=== PATIENT | male | born 1935 | race Caucasian/White ===

== ENCOUNTER 2021-11-05 20:35 | Inpatient (IN) ==
[2021-11-05 22:03] LABS: Basophils # (auto) 0.05 K/uL (0-0.2); Basophils % (auto) 0.6 %; Eosinophils # (auto) 0.01 K/uL (0-0.5); Eosinophils % (auto) 0.1 %; Hematocrit (blood only) 45.7 % (42-52); Hemoglobin 15.7 g/dL (14.0-18.0); Immature Granulocytes % (auto) 1.2 %; Lymphocytes # (auto) 1.12 K/uL (1.2-3.4); Lymphocytes % (auto) 13.2 %; Mean Corpuscular Hemoglobin 30.8 pg (25-34); Mean Corpuscular Hgb Conc 34.4 g/dL (32-36); Mean Corpuscular Volume 89.6 fL (80-100); Mean Platelet Volume 11.5 fL (7.4-10.4); Monocytes # (auto) 2.16 K/uL (0.11-0.59); Monocytes % (auto) 25.5 %; Neutrophils # (auto) 5.03 K/uL (1.4-6.5); Neutrophils % (auto) 59.4 %; Platelet Count 268 K/uL (130-400); RDW Coefficient of Variation 12.8 % (11.5-14.5); RDW Standard Deviation 42.1 fL (36.4-46.3); White Blood Count 8.47 K/uL (4.8-10.8)
--- NOTE | 2021-11-05 22:14 | Emergency Department Note ---
History of Present Illness General Chief complaint: Hypotension Time Seen by Provider: 11/05/21 21:27 History of Present Illness This 86-year-old on aspirin presents to the ER complaining of generalized illness after receiving the shingles vaccine on Thursday who had a near syncopal episode tonight and hit his head Location: Generalized Quality: Weak Severity: Moderate Duration: Past few days Timing: Started after his shingle vaccine Context: Patient was concerned and came in Modifying factors: better with IV fluids; worse with activity Patient states has had a fair amount of diarrhea since that shingles vaccine. He feels weak. His blood pressure was low and EMS gave him a liter which improved this. Patient states he got lightheaded and nearly passed out striking his head. Patient states he feels better after the IV fluids. Patient denies chest pain, dyspnea, localized abdominal pain, neck stiffness, current headache. He states he had a family doctor's appointment on Thursday in which he received his shingles vaccine and had a Holter monitor placed for feeling lightheaded. Home Medications Medication Instructions Recorded Confirmed Type Turmeric/Curcumin 500 mg PO DAILY 11/05/21 11/05/21 History aspirin 325 mg tablet 325 mg PO DAILY 11/05/21 11/05/21 History cholecalciferol (vitamin D3) 25 25 mcg PO Q OTHER DAY 11/05/21 11/05/21 History mcg (1,000 unit) capsule (Vitamin D3) cyanocobalamin (vitamin B-12) 1,000 mcg PO Q OTHER DAY 11/05/21 11/05/21 History 1,000 mcg tablet (Vitamin B-12) gabapentin 100 mg capsule 100 mg PO TID 11/05/21 11/05/21 History garlic 500 mg capsule 500 mg PO DAILY 11/05/21 11/05/21 History losartan 50 mg tablet 50 mg PO DAILY 11/05/21 11/05/21 History simvastatin 40 mg tablet 40 mg PO HS 11/05/21 11/05/21 History triamcinolone acetonide 0.1 % 1 applic TOPICAL HS PRN 11/05/21 11/05/21 History topical ointment vit A-vit [id number] lozenges 1 keisha PO DIRECTED PRN 11/05/21 11/05/21 History (Zinc (with A and C) Lozenges) Allergies Allergy/AdvReac Type Severity Reaction Status Date / Time GAB Inhibitors AdvReac Intermediate Cough Verified 11/05/21 22:29 Past Med/Surg History Medical History High blood pressure Surgical History History of orthopedic surgery Social History Smoking Status: Never smoker Tobacco Type: Cigarettes Hx Alcohol Use: Yes Hx Substance Use: No Preferred Language: Irish Communication Ability: Effective 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 Beliefs That Will Affect Care: None Current Living Situation: Spouse Other Information That Helps Us Care for You: No Feels Safe at Home: Yes Safety Concerns: Feels Safe At This Time Assistive Devices: None Review of Systems A total of 10 systems reviewed and were otherwise negative Physical Exam Vital Signs Vital Signs - 24 hr 11/05/21 20:40 11/05/21 20:44 11/05/21 20:58 Temperature 36.7 C Temperature Source Oral Pulse Rate 99 H 108 H Pulse Rate [Apical] Pulse Rate from SpO2 Sensor Pulse Rhythm [Apical] Pulse Strength [Apical] Respiratory Rate 26 H 20 Respiratory Effort / Characteristics Non-Labored Respiratory Depth Normal Respiratory Pattern Blood Pressure 110/55 L 110/55 L Blood Pressure [Right Arm] Blood Pressure Mean 73 73 Blood Pressure Mean [Right Arm] Blood Pressure Position Sitting Blood Pressure Position [Right Arm] Pulse Oximetry 93 98 98 Oxygen Delivery Method Room Air Room Air Room Air Oxygen Flow Rate 0 Sepsis Recent Fever Within 48 Hours No Sepsis New/Unexplained Change in Mental Status N/A Sepsis Action Taken by Nursing No Action Required 11/05/21 21:00 11/05/21 21:30 11/05/21 22:01 Temperature Temperature Source Pulse Rate 124 H 115 H Pulse Rate [Apical] Pulse Rate from SpO2 Sensor 87 73 Pulse Rhythm [Apical] Pulse Strength [Apical] Respiratory Rate 29 H 29 H Respiratory Effort / Characteristics Non-Labored Respiratory Depth Respiratory Pattern Blood Pressure Blood Pressure [Right Arm] Blood Pressure Mean Blood Pressure Mean [Right Arm] Blood Pressure Position Blood Pressure Position [Right Arm] Pulse Oximetry 94 95 95 Oxygen Delivery Method Room Air Room Air Room Air Oxygen Flow Rate Sepsis Recent Fever Within 48 Hours Sepsis New/Unexplained Change in Mental Status Sepsis Action Taken by Nursing 03/08/22 22:30 11/05/21 23:00 11/05/21 23:28 Temperature Temperature Source Pulse Rate Pulse Rate [Apical] 102 H Pulse Rate from SpO2 Sensor Pulse Rhythm [Apical] Irregular Pulse Strength [Apical] Respiratory Rate 24 24 Respiratory Effort / Characteristics Non-Labored Labored Non-Labored Respiratory Depth Normal Respiratory Pattern Regular Blood Pressure Blood Pressure [Right Arm] 133/56 L Blood Pressure Mean Blood Pressure Mean [Right Arm] 81 Blood Pressure Position Blood Pressure Position [Right Arm] Lying Pulse Oximetry 93 94 94 Oxygen Delivery Method Room Air Room Air Room Air Oxygen Flow Rate Sepsis Recent Fever Within 48 Hours Sepsis New/Unexplained Change in Mental Status Sepsis Action Taken by Nursing 11/05/21 23:56 11/06/21 00:00 11/06/21 00:04 Temperature Temperature Source Pulse Rate Pulse Rate [Apical] 103 H Pulse Rate from SpO2 Sensor Pulse Rhythm [Apical] Irregular Pulse Strength [Apical] Normal Respiratory Rate 28 H 24 24 Respiratory Effort / Characteristics Labored Labored Non-Labored Respiratory Depth Normal Respiratory Pattern Regular Blood Pressure Blood Pressure [Right Arm] 108/87 Blood Pressure Mean Blood Pressure Mean [Right Arm] 94 Blood Pressure Position Blood Pressure Position [Right Arm] Lying Pulse Oximetry 98 95 96 Oxygen Delivery Method Room Air Room Air Room Air Oxygen Flow Rate Sepsis Recent Fever Within 48 Hours Sepsis New/Unexplained Change in Mental Status Sepsis Action Taken by Nursing VITALS: Vitals are noted on the nurse's note and reviewed by myself. Vital signs mildly tachycardic. GENERAL: Pleasant elderly male, in no acute distress, nondiaphoretic, well- developed well-nourished. SKIN: The skin was without rashes, erythema, edema, or bruising. There is no tenting of the skin. Capillary reflex less than 2 seconds. HEAD: Normocephalic atraumatic. EARS: External auditory canals clear, EYES: Pupils equal round and reactive to light and accommodation. Conjunctivae without injection, sclerae without icterus. Extraocular movements intact. NOSE: Patent, turbinates without inflammation or discharge. MOUTH: Mucous membranes mildly dry. Pharynx without erythema or exudate. Uvula midline. Airway patent. Tongue does not deviate. NECK: Supple without nuchal rigidity. No lymphadenopathy. No thyromegaly. Cervical spine is nontender. No JVD. HEART: Irregularly irregular rate and rhythm LUNGS: Clear to auscultation bilaterally without wheezes, rales or rhonchi. No retractions or accessory muscle use. ABDOMEN: Positive bowel sounds x 4. Normal tympanic percussion. Soft, nontender, without masses or organomegaly. Lopez sign negative. No guarding or rebound tenderness. No CVA tenderness MUSCULOSKELETAL: No muscle atrophy, erythema, or edema noted. NEURO: Patient was alert and oriented to person place and time. Normal sensation to light and sharp touch. No focal neurological deficits. Course Administered Medications Discontinued Medications Sodium Chloride (Nss 1000ml) 500 mls @ 999 mls/hr IV .Q31M ONE Stop: 11/05/21 22:50 Last Infusion: 11/05/21 23:33 Dose: 0 mls/hr Documented by: [id number] Admin: 11/05/21 22:28 Dose: 999 mls/hr Documented by: [id number] Medical Decision Making Medical Records Attestation: I reviewed the patient's medical records. Home Medications Current Medication List: was personally reviewed by me Laboratory Data Attestation: I reviewed the patient's lab results. Result diagrams: 11/05/21 20:49 11/05/21 20:49 Lab Results 11/05/21 11/05/21 11/05/21 Range/Units 20:49 20:49 20:49 WBC 8.47 (4.8-10.8) K/uL RBC 5.10 (4.7-6.1) M/uL Hgb 15.7 (14.0-18.0) g/dL Hct 45.7 (42-52) % MCV 89.6 (80-100) fL MCH 30.8 (25-34) pg MCHC 34.4 (32-36) g/dL RDW Std Deviation 42.1 (36.4-46.3) fL RDW Coeff of Mehreen 12.8 (11.5-14.5) % Plt Count 268 (130-400) K/uL MPV 11.5 H (7.4-10.4) fL Immature Gran % (Auto) 1.2 % Neut % (Auto) 59.4 % Lymph % (Auto) 13.2 % Elliott % (Auto) 25.5 % Eos % (Auto) 0.1 % Baso % (Auto) 0.6 % Neut # (Auto) 5.03 (1.4-6.5) K/uL Lymph # (Auto) 1.12 L (1.2-3.4) K/uL Elliott # (Auto) 2.16 H (0.11-0.59) K/uL Eos # (Auto) 0.01 (0-0.5) K/uL Baso # (Auto) 0.05 (0-0.2) K/uL Immature Gran # (Auto) 0.10 H (0.00-0.02) K/uL PT 11.4 (9.0-12.0) Seconds INR 1.1 (0.9-1.1) APTT 28.0 (21.0-31.0) Seconds PTT Ratio 1.0 Sodium 135 L (136-145) mmol/L Potassium 3.1 L (3.5-5.1) mmol/L Chloride 100 (98-107) mmol/L Carbon Dioxide 24 (21-32) mmol/L Anion Gap 11 (3-11) BUN 51 H (6-23) mg/dl Creatinine 2.89 H (0.6-1.4) mg/dl Est Cr Clr Drug Dosing 18.8 ml/min Est GFR ( Amer) 22.1 ml/min Est GFR (Non-Af Amer) 19.1 ml/min BUN/Creatinine Ratio 17.6 (10-20) Glucose 107 H (70-99(Fasting)) mg/dl Lactate (0.4-2.0) mmol/L Calcium 8.8 (8.5-10.1) mg/dl Magnesium 2.1 (1.7-2.4) mg/dl Total Bilirubin 0.6 (0.2-1.0) mg/dl AST 25 (13-39) U/L ALT 18 (7-52) U/L Alkaline Phosphatase 70 (34-104) U/L Troponin I 0.06 H* (0-0.04) ng/ml Total Protein 7.3 (6.0-8.3) gm/dl Albumin 3.7 (3.4-5.0) gm/dl Globulin 3.6 (2.5-4.0) gm/dl Albumin/Globulin Ratio 1.0 (0.9-2) Procalcitonin (0-0.5) ng/ml TSH (0.300-4.500) uIu/ml Adenovirus (PCR) (NotDetected) B. pertussis DNA (PCR) (NotDetected) B.parapertussis DNA PCR (NotDetected) C. pneumoniae DNA (PCR) (NotDetected) Coronavirus OC43 (PCR) (NotDetected) Coronavirus HKU1 (PCR) (NotDetected) Coronavirus 229E (PCR) (NotDetected) SARS-CoV-2 (PCR) (NotDetected) Coronavirus NL63 (PCR) (NotDetected) Human Metapneumovir PCR (NotDetected) Influenza Type A (PCR) (NotDetected) Influenza Type B (PCR) (NotDetected) M. pneumoniae (PCR) (NotDetected) Parainfluenza 1 (PCR) (NotDetected) Parainfluenza 2 (PCR) (NotDetected) Parainfluenza 3 (PCR) (NotDetected) Parainfluenza 4 (PCR) (NotDetected) RSV (PCR) (NotDetected) Entero/Rhino (PCR) (NotDetected) 11/05/21 11/05/21 11/05/21 Range/Units 20:49 20:49 22:20 WBC (4.8-10.8) K/uL RBC (4.7-6.1) M/uL Hgb (14.0-18.0) g/dL Hct (42-52) % MCV (80-100) fL MCH (25-34) pg MCHC (32-36) g/dL RDW Std Deviation (36.4-46.3) fL RDW Coeff of Mehreen (11.5-14.5) % Plt Count (130-400) K/uL MPV (7.4-10.4) fL Immature Gran % (Auto) % Neut % (Auto) % Lymph % (Auto) % Elliott % (Auto) % Eos % (Auto) % Baso % (Auto) % Neut # (Auto) (1.4-6.5) K/uL Lymph # (Auto) (1.2-3.4) K/uL Elliott # (Auto) (0.11-0.59) K/uL Eos # (Auto) (0-0.5) K/uL Baso # (Auto) (0-0.2) K/uL Immature Gran # (Auto) (0.00-0.02) K/uL PT (9.0-12.0) Seconds INR (0.9-1.1) APTT (21.0-31.0) Seconds PTT Ratio Sodium (136-145) mmol/L Potassium (3.5-5.1) mmol/L Chloride (98-107) mmol/L Carbon Dioxide (21-32) mmol/L Anion Gap (3-11) BUN (6-23) mg/dl Creatinine (0.6-1.4) mg/dl Est Cr Clr Drug Dosing ml/min Est GFR ( Amer) ml/min Est GFR (Non-Af Amer) ml/min BUN/Creatinine Ratio (10-20) Glucose (70-99(Fasting)) mg/dl Lactate 2.0 (0.4-2.0) mmol/L Calcium (8.5-10.1) mg/dl Magnesium (1.7-2.4) mg/dl Total Bilirubin (0.2-1.0) mg/dl AST (13-39) U/L ALT (7-52) U/L Alkaline Phosphatase (34-104) U/L Troponin I (0-0.04) ng/ml Total Protein (6.0-8.3) gm/dl Albumin (3.4-5.0) gm/dl Globulin (2.5-4.0) gm/dl Albumin/Globulin Ratio (0.9-2) Procalcitonin 5.06 H (0-0.5) ng/ml TSH 4.000 (0.300-4.500) uIu/ml Adenovirus (PCR) (NotDetected) B. pertussis DNA (PCR) (NotDetected) B.parapertussis DNA PCR (NotDetected) C. pneumoniae DNA (PCR) (NotDetected) Coronavirus OC43 (PCR) (NotDetected) Coronavirus HKU1 (PCR) (NotDetected) Coronavirus 229E (PCR) (NotDetected) SARS-CoV-2 (PCR) (NotDetected) Coronavirus NL63 (PCR) (NotDetected) Human Metapneumovir PCR (NotDetected) Influenza Type A (PCR) (NotDetected) Influenza Type B (PCR) (NotDetected) M. pneumoniae (PCR) (NotDetected) Parainfluenza 1 (PCR) (NotDetected) Parainfluenza 2 (PCR) (NotDetected) Parainfluenza 3 (PCR) (NotDetected) Parainfluenza 4 (PCR) (NotDetected) RSV (PCR) (NotDetected) Entero/Rhino (PCR) (NotDetected) 11/05/21 Range/Units 22:30 WBC (4.8-10.8) K/uL RBC (4.7-6.1) M/uL Hgb (14.0-18.0) g/dL Hct (42-52) % MCV (80-100) fL MCH (25-34) pg MCHC (32-36) g/dL RDW Std Deviation (36.4-46.3) fL RDW Coeff of Mehreen (11.5-14.5) % Plt Count (130-400) K/uL MPV (7.4-10.4) fL Immature Gran % (Auto) % Neut % (Auto) % Lymph % (Auto) % Elliott % (Auto) % Eos % (Auto) % Baso % (Auto) % Neut # (Auto) (1.4-6.5) K/uL Lymph # (Auto) (1.2-3.4) K/uL Elliott # (Auto) (0.11-0.59) K/uL Eos # (Auto) (0-0.5) K/uL Baso # (Auto) (0-0.2) K/uL Immature Gran # (Auto) (0.00-0.02) K/uL PT (9.0-12.0) Seconds INR (0.9-1.1) APTT (21.0-31.0) Seconds PTT Ratio Sodium (136-145) mmol/L Potassium (3.5-5.1) mmol/L Chloride (98-107) mmol/L Carbon Dioxide (21-32) mmol/L Anion Gap (3-11) BUN (6-23) mg/dl Creatinine (0.6-1.4) mg/dl Est Cr Clr Drug Dosing ml/min Est GFR ( Amer) ml/min Est GFR (Non-Af Amer) ml/min BUN/Creatinine Ratio (10-20) Glucose (70-99(Fasting)) mg/dl Lactate (0.4-2.0) mmol/L Calcium (8.5-10.1) mg/dl Magnesium (1.7-2.4) mg/dl Total Bilirubin (0.2-1.0) mg/dl AST (13-39) U/L ALT (7-52) U/L Alkaline Phosphatase (34-104) U/L Troponin I (0-0.04) ng/ml Total Protein (6.0-8.3) gm/dl Albumin (3.4-5.0) gm/dl Globulin (2.5-4.0) gm/dl Albumin/Globulin Ratio (0.9-2) Procalcitonin (0-0.5) ng/ml TSH (0.300-4.500) uIu/ml Adenovirus (PCR) Not Detected (NotDetected) B. pertussis DNA (PCR) Not Detected (NotDetected) B.parapertussis DNA PCR Not Detected (NotDetected) C. pneumoniae DNA (PCR) Not Detected (NotDetected) Coronavirus OC43 (PCR) Not Detected (NotDetected) Coronavirus HKU1 (PCR) Not Detected (NotDetected) Coronavirus 229E (PCR) Not Detected (NotDetected) SARS-CoV-2 (PCR) Not Detected (NotDetected) Coronavirus NL63 (PCR) Not Detected (NotDetected) Human Metapneumovir PCR Not Detected (NotDetected) Influenza Type A (PCR) Not Detected (NotDetected) Influenza Type B (PCR) Not Detected (NotDetected) M. pneumoniae (PCR) Not Detected (NotDetected) Parainfluenza 1 (PCR) Not Detected (NotDetected) Parainfluenza 2 (PCR) Not Detected (NotDetected) Parainfluenza 3 (PCR) Not Detected (NotDetected) Parainfluenza 4 (PCR) Not Detected (NotDetected) RSV (PCR) Not Detected (NotDetected) Entero/Rhino (PCR) Not Detected (NotDetected) Imaging Data Attestation: I personally reviewed and interpreted this imaging study as follows: MDM Narrative Prior records/ancillary studies reviewed and summarized above. Nursing notes reviewed. Additional history obtained from nursing. The patient's history was concerning for generalized illness near syncope since receiving the shingles vaccine Differential diagnosis: Etiologies such as A. fib, side effect of shingles vaccine, metabolic, infection, hypo/hyperglycemia, electrolyte abnormalities, cardiac sources, intracerebral event, toxicologic, neurologic, as well as others were entertained. Physical examination: As above. ER treatment provided: IV Lock An order was placed for continuous cardiac monitoring. The monitor shows a rate of irregularly irregular with a A. fib rhythm. IV fluids On reassessment the patient felt better. Diagnostics interpretation by me: ECG: Ordered for near syncope EKG: Irregularly irregular with occasional PVC, no acute ST-T wave changes, rate of 117. Impression A. fib with RVR occasional PVC interpreted by myself The labs revealed acute renal failure, elevated troponin Blood cultures pending Imaging studies: No acute intracranial abnormality identified. If there is persistent concern for acute infarct, consider further evaluation with MRI. Mild chronic small vessel ischemic disease and cerebral volume loss. Mild calcifications of the basal ganglia. Bilateral lens implants. Atherosclerotic changes of the intracranial vasculature. Radiologist: Lexy Valverde M.D. No acute fracture or malalignment. Degenerative spondylosis most pronounced at C5-6 and C6-7. Radiologist: Shaun Reaves MD Preliminary Findings Only See Final Report For Complete Findings CT ABDOMEN & PELVIS Without Contrast: Cortical cysts in the kidneys bilaterally. No nephrolithiasis or obstructive uropathy. Mild prostatomegaly. Liquid stool within the colon which can be seen in the setting of nonspecific diarrheal illness. No mucosal inflammatory changes along the GI tract. Normal appendix. Remainder of the organs are unremarkable. No free fluid. Radiologist: Shaun Reaves MD Consultation: A consultation was placed with the hospitalist. The case was discussed and diagnostics were reviewed. The patient was evaluated in the ER for further treatment. Exam and history seem consistent with acute renal failure, elevated troponin, near-syncope, dehydration, new onset A. fib and hypotension. Medicine was cons ulted. He will be evaluated for admission. By the evaluation outlined above emergent etiologies such as intracerebral event, toxologic, neurologic, abnormalities blood glucose, as well as others were deemed relatively unlikely. The pt informed about the findings as listed above. All questions were answered and pleased with the treatment. The chart was completed utilizing [employer] Speech voice recognition software. Grammatical errors, random word insertions, pronoun errors, and incomplete sentences are an occassional consequence of this system due to software limitations, ambient noise, and hardware issues. Any formal questions or concerns about the content, text, or information contained within the body of this dictation should be directly addressed to the physician diver assistant for clarification. Impression & Plan Acute renal failure, Elevated troponin, Acute dehydration, Near syncope, Acute hypokalemia, Atrial fibrillation, new onset Discharge Plan Visit Data Chief Complaint: Hypotension ED Provider: Joaquina Pandya ED Midlevel Provider: Laine Avina Discharge Problem: Acute renal failure, Elevated troponin, Acute dehydration, Near syncope, Acute hypokalemia, Atrial fibrillation, new onset Patient Disposition: Admitted As Inpatient Condition: Fair Forms Stand Alone Forms: [facility] Prescriptions Prescriptions: No Action losartan 50 mg tablet 50 mg PO DAILY RF: 0 aspirin 325 mg Tablet 325 mg PO DAILY RF: 0 cyanocobalamin (vitamin B-12) [Vitamin B-12] 1,000 mcg Tablet 1,000 mcg PO Q OTHER DAY RF: 0 simvastatin 40 mg tablet 40 mg PO HS RF: 0 garlic 500 mg Capsule 500 mg PO DAILY RF: 0 triamcinolone acetonide 0.1 % ointment 1 applic TOPICAL HS PRN (Reason: SKIN IRRITATION ON HANDS/ARMS) RF: 0 gabapentin 100 mg capsule 100 mg PO TID RF: 0 cholecalciferol (vitamin D3) [Vitamin D3] 25 mcg (1,000 unit) Capsule 25 mcg PO Q OTHER DAY RF: 0 Zinc (with A and C) Lozenges Lozenge 1 keisha PO DIRECTED PRN (Reason: NEEDED) RF: 0 Turmeric/Curcumin 500 mg PO DAILY RF: 0 Referrals Referrals: Sam Hsieh DO [Primary Care Provider] - Discharge Problem: Acute renal failure Qualifiers: Acute renal failure type: unspecified Qualified Code(s): N17.9 - Acute kidney failure, unspecified
[2021-11-05 22:15] LABS: INR 1.1 (0.9-1.1); Prothrombin Time 11.4 Seconds (9.0-12.0)
[2021-11-05 22:17] LABS: Albumin Level 3.7 gm/dl (3.4-5.0); BUN Creatinine Ratio 17.6 (10-20); Bilirubin,Total 0.6 mg/dl (0.2-1.0); Calcium 8.8 mg/dl (8.5-10.1); Creatinine Clr Calc Pharmacy 18.8 ml/min; Est GFR (African American) 22.1 ml/min; Est GFR (Non-African American) 19.1 ml/min; Globulin 3.6 gm/dl (2.5-4.0); Magnesium 2.1 mg/dl (1.7-2.4); Potassium 3.1 mmol/L (3.5-5.1); Total Protein 7.3 gm/dl (6.0-8.3)
--- NOTE | 2021-11-05 22:19 | Emergency Department Note ---
ED Visit Note I agree with the diagnosis and management decisions and have been personally involved in the medical decision making in this case. EKG reveals a likely atrial fibrillation. Creatinine is elevated at 2.89 with BUN of 51. Pt was hydrated with NSS. Patient's blood pressure has remained stable throughout his stay in the ED. Pt was d/w the hospitalist service for further management. Please see Pia Avina PA-C's notes for further details of the history, physical and visit. . : Acute renal failure Qualifiers: Acute renal failure type: unspecified Qualified Code(s): N17.9 - Acute kidney failure, unspecified
[2021-11-05] MEDS ORDERED: SODIUM CHLORIDE 0.9% 1000ML 500 ML IV ONE (22:20)
[2021-11-05 23:27] LABS: Adenovirus PCR Not Detected (NotDetected); Bordetella parapertussis PCR Not Detected (NotDetected); Bordetella pertussis PCR Not Detected (NotDetected); Chlamydia pneumoniae PCR Not Detected (NotDetected); Coronavirus 229E PCR Not Detected (NotDetected); Coronavirus CoV-2 (COVID19)PCR Not Detected (NotDetected); Coronavirus HKU1 PCR Not Detected (NotDetected); Coronavirus NL63 PCR Not Detected (NotDetected); Coronavirus OC43PCR Not Detected (NotDetected); Human Metapneumovirus PCR Not Detected (NotDetected); Influenza A PCR Not Detected (NotDetected); Influenza B PCR Not Detected (NotDetected); Mycoplasma pneumoniae PCR Not Detected (NotDetected); Parainfluenza Virus 1 PCR Not Detected (NotDetected); Parainfluenza Virus 2 PCR Not Detected (NotDetected); Parainfluenza Virus 3 PCR Not Detected (NotDetected); Parainfluenza Virus 4 PCR Not Detected (NotDetected); Respiratory Syncytial VirusPCR Not Detected (NotDetected); Rhinovirus/Enterovirus PCR Not Detected (NotDetected)
[2021-11-06 00:08] LABS: Appearance Urine Cloudy (Clear); Bacteria Urine Automated Negative (Negative); Blood Urine Negative (Negative); Color Urine Dark Yellow; Epithelial Cell Urine Auto >30 /lpf (0-5); Glucose Urine UA Negative (Negative); Ketones Urine Trace (Negative); Leukocyte Esterase Urine Trace (Negative); Nitrite Urine Negative (Negative); Protein Urine 2+ (Negative); Specific Gravity Urine 1.027 (1.000-1.030); Urobilinogen Urine Negative (Negative); pH Urine 5.5 (4.5-7.5)
[2021-11-06 00:29] LABS: Bilirubin Urine 1+ (Negative)
[2021-11-06 00:39] LABS: Cast Urine Automated >30 /lpf (0-5); RBC Urine Automated 0-4 /hpf (0-4)
[2021-11-06] MEDS ORDERED: SODIUM CHLORIDE 0.9% 500 ML IV SCH (01:15)
[2021-11-06] MEDS ORDERED: TRIAMCINOLONE ACET 0.1% OINT 15 GM TUBE TOP PRN (01:45)
[2021-11-06] MEDS ORDERED: [UNRECOGNIZED DRUG - OTHER] PO PRN (01:45)
[2021-11-06] MEDS ORDERED: ONDANSETRON INJ 2 MG/ML 2 ML VIAL IV PRN (01:45)
[2021-11-06] MEDS ORDERED: ACETAMINOPHEN 325 MG TAB PO PRN (01:45)
[2021-11-06] MEDS ORDERED: NITROGLYCERIN SL 0.4 MG/TAB TAB SL PRN (01:45)
[2021-11-06] MEDS ORDERED: METOPROLOL TARTRATE 1 MG/ML VIAL IV PRN (01:45)
[2021-11-06] MEDS ORDERED: Heparin IV Adult Wt-Based Low-Dose *NO* Bolus Protocol IV ONE (01:45)
[2021-11-06] MEDS: D5W AND NSS 1,000 ML IV SCH ×4 (01:54→20:51)
--- NOTE | 2021-11-06 02:52 | History and Physical Report ---
DATE OF ADMISSION: 11/06/2021. CHIEF COMPLAINT: Fall and hypotension. HISTORY OF PRESENT ILLNESS: An 86-year-old male with past medical history significant for hypertension, hyperlipidemia, history of left carotid artery stenosis, cerebral AVM, chronic kidney disease stage III, BPH, Dupuytren contracture of both hands, peripheral polyneuropathy, history of hearing loss, who lives at home, presents with a fall, and found to have hypotension. The patient says last Thursday, he went to see his family doctor for regular checkup. At that time, he complained of some dizziness and a monitor was placed on him and also it was recommended for a shingles shot. After the shingles shot, he went home and he started feeling sick. He had a fever and body aches, flu-like symptoms and diarrhea, not feeling well, poor appetite, and the symptoms lasted about 3 days, but started getting better, but still has a lot of diarrhea. Still not eating much and today while he was walking, he felt dizzy and fell down and that is the reason he was brought in here and found to have hypotension and also found to be in rapid AFib and creatinine was 2.89, troponin 0.06, procalcitonin 5.06. Currently resting comfortably and hemodynamically stable. Somewhat hard of hearing. Denies any headache, no blurred visions, no earache, no runny nose. Has sore throat because of nausea. He had one episode of vomiting. Denies any chest pain, no shortness of breath, no abdominal pain, no blood in stools. Normal bladder movements. No swelling in the legs, no rash. ALLERGIES: GAB INHIBITORS. PAST MEDICAL HISTORY: As mentioned above. PAST SURGICAL HISTORY: Colonoscopy, left ankle fracture repair, jaw repair, left carotid endarterectomy. MEDICATIONS: The patient is on aspirin 325 mg p.o. daily, vitamin D 25 mcg p.o. daily, vitamin B12 1000 mcg p.o. daily, gabapentin 100 mg p.o. t.i.d., losartan 50 mg p.o. daily, simvastatin 40 mg p.o. daily, triamcinolone p.r.n. FAMILY HISTORY: Significant for mother has diabetes, maternal grandmother has [place], maternal grandfather had stroke. SOCIAL HISTORY: , former smoker, smoked for 40 years. Alcohol occasional. No drug use. REVIEW OF SYSTEMS: As per HPI. Rest of the review of systems is negative. PHYSICAL EXAMINATION: GENERAL: The patient is of moderate build, not in acute distress. VITAL SIGNS: Temperature 36.7, pulse 109, respiratory rate in 20s, blood pressure 108/87, oxygen 94% on room air. HEENT: Pupils equal, round, and reactive to light. Oral mucosa moist. NECK: No JVD. No neck masses. CARDIOVASCULAR: S1 and S2 heard. Regular rate and rhythm. No murmur, no gallop. RESPIRATORY SYSTEM: Normal AP diameter. No accessory muscle use. No wheezing, no crackles. ABDOMEN: Soft, bowel sounds present, nontender, no distention. CENTRAL NERVOUS SYSTEM: Cranial nerves II through XII are grossly intact, nonfocal. EXTREMITIES: No edema, no erythema. LABORATORY DATA: WBC 8.4, hemoglobin 15.7, hematocrit 45.7, platelets 268. PT 11.4, INR 1.1, APTT 28. Sodium 135, potassium 3.1, chloride 100, bicarbonate 24, BUN 51, creatinine 2.89, serum glucose 107, lactate 2, calcium 8.8, magnesium 2.1, total bilirubin 0.6, AST 25, ALT 18, alkaline phosphatase 70. Troponin 1 of 0.06. Procalcitonin is 5.06. TSH is 4. Urinalysis, +2 protein, trace ketones. Urine bacteria negative. BioFire negative. IMAGING DATA: CT abdomen and pelvis preliminary report shows liquid stool in the colon, which can be seen in the setting of nonspecific diarrheal illness. No acute findings. CT of the head, preliminary report, no acute findings. Chest x-ray, no acute findings. Cervical spine, preliminary report, no acute findings. Degenerative spondylosis, most prominent at C5-C6 and C6-C7 levels. EKG: Atrial fibrillation with rapid ventricular response at a rate of 114. T- wave inversions in anterolateral leads. ASSESSMENT AND PLAN: This is an 86-year-old male who presents with fall and hypotension, found to be in atrial fibrillation and also acute kidney injury. 1. Fall and hypotension: Most likely dehydration because of sickness since his Zoster vaccine on Thursday and poor appetite. BioFire is negative. Currently, symptoms are improving, feeling better, but he had hypotension and fall today. With the fluids, blood pressure is improving, will continue the fluids. Monitor in the tele floor, orthostatics. PT, OT when stable. 2. Rapid atrial fibrillation: Most likely from above, from illness and dehydration. Getting fluids. Will place on IV Lopressor p.r.n. 2.5 mg q. 6 hours p.r.n. for heart rate greater than 120 withholding parameters. Also, started on IV heparin low dose. Follow the echocardiogram. Will monitor in tele floor. Consult cardiology in the a.m. 3. Mild elevation in troponin, mostly demand ischemia: EKG changes. Will follow serial enzymes, echo. The patient was also started on IV heparin. On aspirin and statin. Will await cardiology input. 4. Acute kidney injury on chronic kidney disease stage III: Baseline creatinine 1.3, currently with a creatinine of 2.8. Getting fluids. Will follow the repeat labs in the a.m. 5. Hypokalemia: Will replace. 6. Possible gastroenteritis: Will follow the final report of the CT scan, follow the stool studies. Placed on clear liquid diet and IV fluids. 7. Hypertension: Will hold the losartan because of hypotension and acute kidney injury. 8. Hyperlipidemia: On statin. 9. History of cerebral arteriovenous malformation: As per the [facility] notes- PCP notes, no followup needed as per neurosurgery. 10. Benign prostatic hypertrophy: Will monitor for any urinary retention. 11. Deep venous thrombosis prophylaxis: On IV heparin. DISPOSITION: Closely monitor in the tele floor. Level 1 full code. Expect to discharge home and follow with family doctor. PT, OT prior to discharge. Social service to help with discharge planning. Job ID: [id number] [facility]Du
[2021-11-06 03:17] LABS: INR 1.1 (0.9-1.1); Partial Thromboplastin Time 26.8 Seconds (21.0-31.0); Prothrombin Time 11.2 Seconds (9.0-12.0)
[2021-11-06] MEDS: HEPARIN SODIUM/DEXTROSE 25,000 UNITS/500 ML BAG IV SCH (03:21)
[2021-11-06 05:57] LABS: Basophils # (auto) 0.05 K/uL (0-0.2); Basophils % (auto) 0.6 %; Eosinophils # (auto) 0.02 K/uL (0-0.5); Eosinophils % (auto) 0.3 %; Hemoglobin 13.6 g/dL (14.0-18.0); Immature Granulocytes # (auto) 0.06 K/uL (0.00-0.02); Immature Granulocytes % (auto) 0.8 %; Lymphocytes # (auto) 1.25 K/uL (1.2-3.4); Mean Corpuscular Hemoglobin 30.9 pg (25-34); Mean Corpuscular Hgb Conc 34.9 g/dL (32-36); Mean Corpuscular Volume 88.6 fL (80-100); Mean Platelet Volume 10.6 fL (7.4-10.4); Monocytes # (auto) 1.86 K/uL (0.11-0.59); Monocytes % (auto) 23.9 %; Neutrophils # (auto) 4.55 K/uL (1.4-6.5); Neutrophils % (auto) 58.4 %; Platelet Count 219 K/uL (130-400); RDW Coefficient of Variation 12.9 % (11.5-14.5); RDW Standard Deviation 41.9 fL (36.4-46.3); White Blood Count 7.79 K/uL (4.8-10.8)
[2021-11-06 06:14] LABS: Troponin I 0.04 ng/ml (0-0.04)
[2021-11-06 06:17] LABS: BUN Creatinine Ratio 20.7 (10-20); Calcium 7.4 mg/dl (8.5-10.1); Est GFR (African American) 25.6 ml/min; Est GFR (Non-African American) 22.1 ml/min; Magnesium 2.1 mg/dl (1.7-2.4)
--- NOTE | 2021-11-06 06:43 | CT Scan Report ---
CT head/brain wo con CLINICAL HISTORY: 86 years-old Male with syncope/Hi,on asa. Acute syncope with head injury TECHNIQUE: Multiple axial CT images of the head were obtained without contrast. A dose lowering tech nique was utilized adhering to the principles of ALARA. CT DOSE: 729.78 mGycm COMPARISON: None. FINDINGS: No acute intracranial hemorrhage, midline shift, intracranial mass, hydrocephalus, territorial ischem ia or abnormal extra-axial collection. Mild involutional changes. Senescent basal ganglia and cerebra l vascular calcifications. The calvarium is intact. Prior bilateral lens repair.The paranasal sinuses, mastoid air cells, and mi ddle ear cavities are clear. IMPRESSION: No acute intracranial abnormality. ACT 112: Negative or not required by law. The above report was generated using voice recognition software. It may contain grammatical, syntax o r spelling errors. Electronically signed by: Konstantin Davidson M.D. 11/06/2021 6:41 AM
[2021-11-06] MEDS ORDERED: POTASSIUM CHLORIDE CRTAB 20 MEQ TABCR PO STA (06:51)
--- NOTE | 2021-11-06 06:52 | XRay Report ---
XR chest 1V portable HISTORY: 86 years-old Male SEPSIS acute hypotension with sepsis COMPARISON: CT abdomen and pelvis of same day TECHNIQUE: Portable AP view of the chest FINDINGS: The cardiac mediastinal and hilar silhouettes are within normal limits. Emphysema with mild interstit ial coarsening which is favored to be chronic. No pneumothorax, pleural effusion, airspace consolidat ion or overt pulmonary edema. Battery pack of the left chest wall. Degenerative changes of the should ers and spine. IMPRESSION: Emphysema without acute process. ACT 112: Negative or not required by law. The above report was generated using voice recognition software. It may contain grammatical, syntax o r spelling errors. Electronically signed by: Konstantin Davidson M.D. 11/06/2021 6:50 AM
--- NOTE | 2021-11-06 07:30 | CT Scan Report ---
CERVICAL SPINE CT CT DOSE: 433.09 mGycm HISTORY: syncope/Hi,on asa TECHNIQUE: Multiaxial CT images of the cervical spine were performed and reformatted in the sagittal and coronal plane without the use of contrast. A dose lowering technique was utilized adhering to e principles of ALARA. COMPARISON: None. FINDINGS: No fractures. No subluxation. Prevertebral soft tissues and the C1-C2 interval are intact. No pneumothorax. Severe disc space narrowing at C5-C6 and C6-C7. Biapical pleural-parenchymal scarlik e densities are noted. IMPRESSION: No fractures within the cervical spine. ACT 112: Negative or not required by law. Electronically signed by: Terrence Lopez M.D. 11/06/2021 7:29 AM
[2021-11-06] MEDS: POTASSIUM CHLORIDE / WTR 10 MEQ/100 ML PLCT IV SCH ×2 (07:32→08:40)
[2021-11-06 07:58] LABS: Partial Thromboplastin Ratio 1.3; Partial Thromboplastin Time 36.2 Seconds (21.0-31.0)
--- NOTE | 2021-11-06 08:27 | CT Scan Report ---
ABDOMEN AND PELVIS CT WITHOUT CONTRAST CT DOSE: 875.87 mGycm HISTORY: Acute generalized abdominal pain with weakness and acute renal failure D, weak, pain, ARF TECHNIQUE: Multiaxial CT images of the abdomen and pelvis were performed without contrast. A dose lo wering technique was utilized adhering to the principles of ALARA. COMPARISON STUDY: None. FINDINGS: Coronary artery calcifications. Emphysema with bronchial wall thickening suggestive of bronchitis. Mi nimal tree-in-bud nodules of the basal left lower lobe are suggestive of an associated bronchiolitis. No pneumatosis or pneumoperitoneum. The unenhanced spleen, mildly atrophic pancreas, adrenal glands, gallbladder and liver are within normal limits. There is suggestion of layering gallbladder sludge. 4.3 cm cyst of the superior pole left kidney. 7.4 x 7.2 cm cyst of the right kidney with thin calcifi ed marginal and septal calcifications. 2.8 cm cyst of the inferior pole right kidney. No urolith or h ydronephrosis. Prostamegaly. Urinary bladder wall thickening with partial distention. There are sugge sted fat filled inguinal hernias bilaterally. Atherosclerosis of the aorta without aneurysm. There is no adenopathy. Tiny hiatal hernia with mild distal esophageal wall thickening. There are a few scattered small and l arge bowel air-fluid levels which are likely physiologic. Colonic diverticulosis. 1.7 cm fatty attenu ating focus of the cecum is suggestive of a submucosal lipoma. Noninflamed appendix. There is no asci ivan or mesenteric inflammation. Tiny fat filled periumbilical hernia. Unremarkable soft tissues. Lumb ar levoscoliosis. Degenerative changes of the spine, pelvis and hips. IMPRESSION: 1. No bowel obstruction or bowel wall thickening. 2. Scattered small and large bowel air-fluid levels may be physiologic or represent a nonspecific ent eritis with diarrheal illness. 3. Tiny hiatal hernia with mild distal esophageal wall thickening. 4. Prostamegaly with chronic bladder outlet obstruction. 5. Emphysema with suggested bronchitis. 6. Additional findings as above. ACT 112: Negative or not required by law. The above report was generated using voice recognition software. It may contain grammatical, syntax o r spelling errors. Electronically signed by: Konstantin Davidson M.D. 11/06/2021 8:26 AM
[2021-11-06] MEDS ORDERED: HEPARIN SOD (PORCINE) 1000 UNIT/ML IV ONE (08:45)
[2021-11-06] MEDS: GABAPENTIN 100 MG CAP PO SCH ×3 (08:45→20:43)
[2021-11-06] MEDS: ASPIRIN 325 MG ECTAB PO SCH (08:46)
[2021-11-06] MEDS: CYANOCOBALAMIN (B-12) 500 MCG TABLET PO SCH (08:47)
[2021-11-06] MEDS: CHOLECALCIFEROL 1,000 UNITS 25 MCG TAB PO SCH (08:47)
--- NOTE | 2021-11-06 09:04 | Electrocardiogram Report ---
Test Reason : Blood Pressure : / mmHG Vent. Rate : 117 BPM Atrial Rate : 127 BPM P-R Int : 000 ms QRS Dur : 088 ms QT Int : 366 ms P-R-T Axes : 000 060 009 degrees QTc Int : 510 ms Multifocal atrial tachycardia Nonspecific ST abnormality Abnormal ECG When compared with ECG of 11-JUL-2000 08:13, HR has increased by 48 bpm Sinus rhythm no longer present ST now depressed in Anterior leads Nonspecific T wave abnormality now evident in Inferior leads Confirmed by Rico Godoy ([id number]) on 11/06/2021 9:04:06 AM Referred By: REFERRED SELF Confirmed By:Rico Godoy
--- NOTE | 2021-11-06 09:13 | Electrocardiogram Report ---
Test Reason : Blood Pressure : / mmHG Vent. Rate : 114 BPM Atrial Rate : 141 BPM P-R Int : 000 ms QRS Dur : 084 ms QT Int : 360 ms P-R-T Axes : 000 071 103 degrees QTc Int : 496 ms Multifocal atrial tachycardia Diffuse Nonspecific ST and T wave abnormality Abnormal ECG When compared with ECG of 05-NOV-2021 20:44, No significant change Confirmed by Rico Godoy ([id number]) on 11/06/2021 9:13:05 AM Referred By: REFERRED SELF Confirmed By:Rico Godoy
[2021-11-06] MEDS: AMIODARONE 200 MG TAB PO SCH ×2 (11:55→17:36)
[2021-11-06 13:04] LABS: BUN Creatinine Ratio 23.2 (10-20); Calcium 8.2 mg/dl (8.5-10.1); Creatinine Clr Calc Pharmacy 27.1 ml/min; Est GFR (African American) 34.9 ml/min; Est GFR (Non-African American) 30.1 ml/min; Potassium 3.2 mmol/L (3.5-5.1)
[2021-11-06 13:06] LABS: Troponin I 0.04 ng/ml (0-0.04)
[2021-11-06 13:30] LABS: Troponin I 0.06 ng/ml (0-0.04)
--- NOTE | 2021-11-06 13:36 | Hospitalist Progress Note ---
Date of Service November 06, 2021 Assessment & Plan Plan: 1. New onset A fib with RVR -currently on heparin drip -started Amiodarone. Management per Cardiology -TTE reviewed, overall unremarkable -TSH normal 2. Hypokalemia -due to ongoing diarrhea -s/p total 50mEq this morning. Repeat K 3.2 -will place on KCl 40mEq BID. And give another 10mEq K rider -Mg normal -repeat BMP tomorrow 3. Diarrhea -stool studies ordered but not yet collected. Patient will be provided with hat -if negative for c diff, can start imodium PRN 4. Mildly elevated troponin -likely demand in setting of A fib RVR 5. ASHELY on CKD stage 3 -ASHELY in setting of GI losses -hold nephrotoxic agents -improved with IVF. will continue to monitor 6. HTN -holding losartan -BP low normal currently 7. Carotid artery disease -aspirin, statin DVT ppx already on heparin drip Admission and Anticipated Discharge Date Admission Date: November 06, 2021 Subjective Still having profuse watery diarrhea Remains in A fib Physical Exam Physical Exam: Appears stated age, mildly anxious, no acute distress Respiratory: Breathing comfortably on room air, no wheezing/rhonchi/rales Cardiovascular: Irregular but not rapid, no murmurs/rubs/gallops Gastrointestinal (Abdomen): Hyperactive Musculoskeletal: No edema Neurologic: awake, alert, spontaneously moving extremities Results & Data Results & Data ([facility]) Vital Signs (Past 12 Hours) Vital Signs Temp Pulse Resp BP Pulse Ox 11/06/21 11:00 36.7 C 89 20 106/59 L 96 11/06/21 08:00 36.7 C 109 H 18 90/56 L 95 11/06/21 05:16 37.1 C 102 H 18 94/61 L 95 11/06/21 01:41 36.7 C 77 18 123/70 96 Laboratory Results Short CBC 11/05/21 11/06/21 Range/Units 20:49 05:36 WBC 8.47 7.79 (4.8-10.8) K/uL Hgb 15.7 13.6 L (14.0-18.0) g/dL Hct 45.7 39.0 L (42-52) % Plt Count 268 219 (130-400) K/uL BMP 11/05/21 11/06/21 11/06/21 20:49 05:36 12:18 Sodium 135 L 136 138 Potassium 3.1 L 3.0 L 3.2 L Chloride 100 105 108 H Carbon Dioxide 24 24 23 BUN 51 H 53 H 46 H Creatinine 2.89 H 2.56 H D 1.98 H D Glucose 107 H 113 H 105 H Calcium 8.8 7.4 L 8.2 L Cardiac Enzymes 11/05/21 11/06/21 11/06/21 Range/Units 20:49 05:36 12:18 Troponin I 0.06 H* 0.04 0.04 (0-0.04) ng/ml Liver Function 11/05/21 Range/Units 20:49 Total Bilirubin 0.6 (0.2-1.0) mg/dl AST 25 (13-39) U/L ALT 18 (7-52) U/L Alkaline Phosphatase 70 (34-104) U/L Albumin 3.7 (3.4-5.0) gm/dl Urine 11/05/21 Range/Units 23:02 Urine Color Dark Yellow Urine Appearance Cloudy A (Clear) Urine pH 5.5 (4.5-7.5) Ur Specific Usk 1.027 (1.000-1.030) Urine Protein 2+ H (Negative) Urine Glucose (UA) Negative (Negative) Medications Administered Current Inpatient Medications Acetaminophen (Acetaminophen 325 Mg Tab) 650 mg PO Q4H PRN PRN Reason: Pain or Fever Stop: 12/06/21 01:44 Amiodarone HCl (Amiodarone 200 Mg Tab) 400 mg PO TIDM [facility] Stop: 12/06/21 11:59 Last Admin: 11/06/21 11:55 Dose: 400 mg Documented by: Aspirin (Aspirin 325 Mg Ectab) 325 mg PO DAILY LAZARUS Stop: 12/06/21 08:59 Last Admin: 11/06/21 08:46 Dose: 325 mg Documented by: Cyanocobalamin (Cyanocobalamin (B-12) 500 Mcg Tablet) 1,000 mcg PO Q2D LAZARUS Stop: 12/06/21 08:59 Last Admin: 11/06/21 08:47 Dose: 1,000 mcg Documented by: Gabapentin (Gabapentin 100 Mg Cap) 100 mg PO TID [facility] Stop: 12/06/21 08:59 Last Admin: 11/06/21 08:45 Dose: 100 mg Documented by: Dextrose/Sodium Chloride (D5w And Nss) 1,000 mls @ 125 mls/hr IV .Q8H LAZARUS Stop: 12/06/21 00:44 Last Admin: 11/06/21 08:48 Dose: 125 mls/hr Documented by: Heparin Sodium/Dextrose (Heparin Sodium/Dextrose) 25,000 units in 500 mls @ 20 mls/hr IV .Q24H LAZARUS; Protocol Stop: 12/06/21 01:44 Last Titration: 11/06/21 08:15 Dose: 1,000 units/hr, 20 mls/hr Documented by: Potassium Chloride (K Claude / Wtr) 10 meq in 100 mls @ 100 mls/hr IV ONE ONE; Protocol Stop: 11/06/21 14:31 Metoprolol Tartrate (Metoprolol Tartrate 1 Mg/Ml Vial) 2.5 mg IV Q6 PRN; Protocol PRN Reason: Tachycardia Stop: 12/06/21 01:44 Nitroglycerin (Nitroglycerin Sl 0.4 Mg/Tab Tab) 0.4 mg SL UD PRN PRN Reason: Chest Pain Stop: 12/06/21 01:44 Ondansetron HCl (Ondansetron Inj 2 Mg/Ml 2 Ml Vial) 4 mg IV Q6H PRN PRN Reason: Nausea Stop: 12/06/21 01:44 Potassium Chloride (Potassium Chloride Crtab 20 Meq Tabcr) 40 meq PO BID STA Stop: 11/06/21 13:33 Triamcinolone Acetonide (Triamcinolone Acet 0.1% Oint 15 Gm Tube) 1 appln TOP HS PRN PRN Reason: SKIN IRRITATION ON HANDS/ARMS Stop: 12/06/21 01:44 Vitamin D (Cholecalciferol 1,000 Units 25 Mcg Tab) 1,000 units PO Q2D LAZARUS Stop: 12/06/21 08:59 Last Admin: 11/06/21 08:47 Dose: 1,000 units Documented by:
[2021-11-06] MEDS ORDERED: POTASSIUM CHLORIDE / WTR 10 MEQ/100 ML PLCT IV ONE (14:00)
--- NOTE | 2021-11-06 14:11 | Cardiology Consultation ---
Date of Consultation November 06, 2021 Assessment & Plan (1) Acute renal failure: (2) Acute dehydration: (3) Near syncope: (4) Acute hypokalemia: (5) Atrial fibrillation, new onset: Believe the best option for this patient is to be started on amiodarone which was started earlier this morning. I would continue the IV heparin for now. Correct his electrolytes as you have been doing along with his dehydration with IV fluids. I have added Slow-Mag to his medical regimen. We will follow h im with you during his hospital stay. History of Present Illness Attending Physician: Zina Dawson MD History of Present Illness This is an 86-year-old male patient with no prior history of heart disease. Recently he has been experiencing some episodic lightheadedness and dizziness. He saw his shot polisher and inspector on Thursday of last week who provided him with a ZIO monitor. He also got the shingles vaccine. After receiving the vaccine he did not feel well and over the weekend he had a lot of cold-like symptoms and and diarrhea. He eventually had a near syncopal episode and his family brought him to the hospital where he was noted to be in atrial fibrillation with RVR. He has had no recent chest pain or unusual shortness of breath. On admission he was noted to be dehydrated with electrolyte abnormalities including hypokalemia along with acute on chronic renal failure. Allergies Allergy/AdvReac Type Severity Reaction Status Date / Time GAB Inhibitors AdvReac Intermediate Cough Verified 11/05/21 22:29 Home Medications Medication Instructions Recorded Confirmed Type Turmeric/Curcumin 500 mg PO DAILY 11/05/21 11/05/21 History aspirin 325 mg tablet 325 mg PO DAILY 11/05/21 11/05/21 History cholecalciferol (vitamin D3) 25 25 mcg PO Q OTHER DAY 11/05/21 11/05/21 History mcg (1,000 unit) capsule (Vitamin D3) cyanocobalamin (vitamin B-12) 1,000 mcg PO Q OTHER DAY 11/05/21 11/05/21 History 1,000 mcg tablet (Vitamin B-12) gabapentin 100 mg capsule 100 mg PO TID 11/05/21 11/05/21 History garlic 500 mg capsule 500 mg PO DAILY 11/05/21 11/05/21 History losartan 50 mg tablet 50 mg PO DAILY 11/05/21 11/05/21 History simvastatin 40 mg tablet 40 mg PO HS 11/05/21 11/05/21 History triamcinolone acetonide 0.1 % 1 applic TOPICAL HS PRN 11/05/21 11/05/21 History topical ointment vit A-vit [id number]-[id number] lozenges 1 keisha PO DIRECTED PRN 11/05/21 11/05/21 History (Zinc (with A and C) Lozenges) Patient History Medical History High blood pressure Surgical History History of orthopedic surgery Social History Smoking Status: Never smoker Tobacco Type: Cigarettes Hx Alcohol Use: Yes Hx Substance Use: No Preferred Language: Malian Communication Ability: Effective Magnetic Resonance Imaging Director Required: No Beliefs That Will Affect Care: None Current Living Situation: Spouse Other Information That Helps Us Care for You: No Feels Safe at Home: Yes Safety Concerns: Feels Safe At This Time Assistive Devices: None Review of Systems Review of Systems: Review of Systems: See HPI for pertinent positives. All other 10 point review of systems are negative. Physical Exam Physical Exam: General: no acute distress and stated age Head: normocephalic, no masses, lesions, tenderness or abnormalities Eyes: conjunctiva are pink and non-injected, sclera clear Neck: supple, no adenopathy, no bruits, normal jugular venous pulse, no hepatojugular reflux Chest: normal shape and normal respiratory effort Lungs: clear to auscultation and percussion Cardiac Exam: - irregular rate & rhythm, no murmurs gallops or rubs - normal S1, normal S2 Pulses: 2(+) throughout Abdomen: abdomen soft, non-tender, no abnormal masses and no hepatosplenomegaly Musculoskeletal: no gait disturbance, no joint inflammation, no deforming arthritis Extremities: no edema and no cyanosis Neuro: grossly normal exam Results & Data ([facility]) Vital Signs (Past 12 Hours) Vital Signs Temp Pulse Resp BP Pulse Ox 11/06/21 11:00 36.7 C 89 20 106/59 L 96 11/06/21 08:00 36.7 C 109 H 18 90/56 L 95 11/06/21 05:16 37.1 C 102 H 18 94/61 L 95 Laboratory Results Laboratory Results - last 24 hr 11/05/21 11/05/21 11/05/21 20:49 20:49 20:49 WBC 8.47 RBC 5.10 Hgb 15.7 Hct 45.7 MCV 89.6 MCH 30.8 MCHC 34.4 RDW Std Deviation 42.1 RDW Coeff of Mehreen 12.8 Plt Count 268 MPV 11.5 H Immature Gran % (Auto) 1.2 Neut % (Auto) 59.4 Lymph % (Auto) 13.2 Cataño % (Auto) 25.5 Eos % (Auto) 0.1 Baso % (Auto) 0.6 Neut # (Auto) 5.03 Lymph # (Auto) 1.12 L Cataño # (Auto) 2.16 H Eos # (Auto) 0.01 Baso # (Auto) 0.05 Immature Gran # (Auto) 0.10 H PT 11.4 INR 1.1 APTT 28.0 PTT Ratio 1.0 Sodium 135 L Potassium 3.1 L Chloride 100 Carbon Dioxide 24 Anion Gap 11 BUN 51 H Creatinine 2.89 H Est Cr Clr Drug Dosing 18.8 Est GFR ( Amer) 22.1 Est GFR (Non-Af Amer) 19.1 BUN/Creatinine Ratio 17.6 Glucose 107 H Lactate Calcium 8.8 Magnesium 2.1 Total Bilirubin 0.6 AST 25 ALT 18 Alkaline Phosphatase 70 Troponin I 0.06 H* Total Protein 7.3 Albumin 3.7 Globulin 3.6 Albumin/Globulin Ratio 1.0 Procalcitonin TSH Urine Color Urine Appearance Urine pH Ur Specific Shelbina Urine Protein Urine Glucose (UA) Urine Ketones Urine Blood Urine Nitrite Urine Bilirubin Urine Urobilinogen Ur Leukocyte Esterase Urine WBC (Auto) Urine RBC (Auto) U Hyaline Cast (Auto) U Epithel Cells (Auto) Urine Bacteria (Auto) Ur Renal Epithelial Cell Urine Yeast Stl C. cayetanensis PCR Stool Rotavirus A PCR Stl Adenov F 40/41 PCR Stool Astrovirus (PCR) Stool Campylobacter PCR Stl C. diff Tox B Gene Stl C. diff Tox A/B PCR Stool Cryptosporidium PCR Stl E.coli Shiga Tox PCR Stl Enterotoxigenic E PCR Stool EAEC (PCR) Stl E. histolytica PCR Stool Giardia Lamblia PCR Stool Salmonella PCR Stool Sapovirus (PCR) Stl P. shigelloides PCR Stl Shigella/EIEC PCR St Y.enterocolitica PCR Stool Vibrio (PCR) Stl Vibrio cholerae PCR Stl Norovirus GI/GII PCR Adenovirus (PCR) B. pertussis DNA (PCR) B.parapertussis DNA PCR C. pneumoniae DNA (PCR) Coronavirus OC43 (PCR) Coronavirus HKU1 (PCR) Coronavirus 229E (PCR) SARS-CoV-2 (PCR) Coronavirus NL63 (PCR) Human Metapneumovir PCR Influenza Type A (PCR) Influenza Type B (PCR) M. pneumoniae (PCR) Parainfluenza 1 (PCR) Parainfluenza 2 (PCR) Parainfluenza 3 (PCR) Parainfluenza 4 (PCR) RSV (PCR) Entero/Rhino (PCR) 11/05/21 11/05/21 11/05/21 20:49 20:49 22:20 WBC RBC Hgb Hct MCV MCH MCHC RDW Std Deviation RDW Coeff of Mehreen Plt Count MPV Immature Gran % (Auto) Neut % (Auto) Lymph % (Auto) Cata[place] % (Auto) Eos % (Auto) Baso % (Auto) Neut # (Auto) Lymph # (Auto) Cata[place] # (Auto) Eos # (Auto) Baso # (Auto) Immature Gran # (Auto) PT INR APTT PTT Ratio Sodium Potassium Chloride Carbon Dioxide Anion Gap BUN Creatinine Est Cr Clr Drug Dosing Est GFR ( Amer) Est GFR (Non-Af Amer) BUN/Creatinine Ratio Glucose Lactate 2.0 Calcium Magnesium Total Bilirubin AST ALT Alkaline Phosphatase Troponin I Total Protein Albumin Globulin Albumin/Globulin Ratio Procalcitonin 5.06 H TSH 4.000 Urine Color Urine Appearance Urine pH Ur Specific [place] Urine Protein Urine Glucose (UA) Urine Ketones Urine Blood Urine Nitrite Urine Bilirubin Urine Urobilinogen Ur Leukocyte Esterase Urine WBC (Auto) Urine RBC (Auto) U Hyaline Cast (Auto) U Epithel Cells (Auto) Urine Bacteria (Auto) Ur Renal Epithelial Cell Urine Yeast Stl C. cayetanensis PCR Stool Rotavirus A PCR Stl Adenov F 40 PCR Stool Astrovirus (PCR) Stool Campylobacter PCR Stl C. diff Tox B Gene Stl C. diff Tox A/B PCR Stool Cryptosporidium PCR Stl E.coli Shiga Tox PCR Stl Enterotoxigenic E PCR Stool EAEC (PCR) Stl E. histolytica PCR Stool Giardia Lamblia PCR Stool Salmonella PCR Stool Sapovirus (PCR) Stl P. shigelloides PCR Stl Shigella/EIEC PCR St Y.enterocolitica PCR Stool Vibrio (PCR) Stl Vibrio cholerae PCR Stl Norovirus GI/GII PCR Adenovirus (PCR) B. pertussis DNA (PCR) B.parapertussis DNA PCR C. pneumoniae DNA (PCR) Coronavirus OC43 (PCR) Coronavirus HKU1 (PCR) Coronavirus 229E (PCR) SARS-CoV-2 (PCR) Coronavirus NL63 (PCR) Human Metapneumovir PCR Influenza Type A (PCR) Influenza Type B (PCR) M. pneumoniae (PCR) Parainfluenza 1 (PCR) Parainfluenza 2 (PCR) Parainfluenza 3 (PCR) Parainfluenza 4 (PCR) RSV (PCR) Entero/Rhino (PCR) 11/05/21 11/05/21 11/06/21 22:30 23:02 02:58 WBC RBC Hgb Hct MCV MCH MCHC RDW Std Deviation RDW Coeff of Mehreen Plt Count MPV Immature Gran % (Auto) Neut % (Auto) Lymph % (Auto) Cata[place] % (Auto) Eos % (Auto) Baso % (Auto) Neut # (Auto) Lymph # (Auto) C[place] # (Auto) Eos # (Auto) Baso # (Auto) Immature Gran # (Auto) PT 11.2 INR 1.1 APTT 26.8 PTT Ratio 1.0 Sodium Potassium Chloride Carbon Dioxide Anion Gap BUN Creatinine Est Cr Clr Drug Dosing Est GFR ( Amer) Est GFR (Non-Af Amer) BUN/Creatinine Ratio Glucose Lactate Calcium Magnesium Total Bilirubin AST ALT Alkaline Phosphatase Troponin I Total Protein Albumin Globulin Albumin/Globulin Ratio Procalcitonin TSH Urine Color Dark Yellow Urine Appearance Cloudy A Urine pH 5.5 Ur Specific Shel[place] 1.027 Urine Protein 2+ H Urine Glucose (UA) Negative Urine Ketones Trace H Urine Blood Negative Urine Nitrite Negative Urine Bilirubin 1+ H Urine Urobilinogen Negative Ur Leukocyte Esterase Trace H Urine WBC (Auto) 10-30 H Urine RBC (Auto) 0-4 U Hyaline Cast (Auto) >30 H U Epithel Cells (Auto) >30 H Urine Bacteria (Auto) Negative Ur Renal Epithelial Cell Not Reportable Urine Yeast Not Reportable Stl C. cayetanensis PCR Stool Rotavirus A PCR Stl Adenov F 40/41 PCR Stool Astrovirus (PCR) Stool Campylobacter PCR Stl C. diff Tox B Gene Stl C. diff Tox A/B PCR Stool Cryptosporidium PCR Stl E.coli Shiga Tox PCR Stl Enterotoxigenic E PCR Stool EAEC (PCR) Stl E. histolytica PCR Stool Giardia Lamblia PCR Stool Salmonella PCR Stool Sapovirus (PCR) Stl P. shigelloides PCR Stl Shigella/EIEC PCR St Y.enterocolitica PCR Stool Vibrio (PCR) Stl Vibrio cholerae PCR Stl Norovirus GI/GII PCR Adenovirus (PCR) Not Detected B. pertussis DNA (PCR) Not Detected B.parapertussis DNA PCR Not Detected C. pneumoniae DNA (PCR) Not Detected Coronavirus OC43 (PCR) Not Detected Coronavirus HKU1 (PCR) Not Detected Coronavirus 229E (PCR) Not Detected SARS-CoV-2 (PCR) Not Detected Coronavirus NL63 (PCR) Not Detected Human Metapneumovir PCR Not Detected Influenza Type A (PCR) Not Detected Influenza Type B (PCR) Not Detected M. pneumoniae (PCR) Not Detected Parainfluenza 1 (PCR) Not Detected Parainfluenza 2 (PCR) Not Detected Parainfluenza 3 (PCR) Not Detected Parainfluenza 4 (PCR) Not Detected RSV (PCR) Not Detected Entero/Rhino (PCR) Not Detected 11/06/21 11/06/21 11/06/21 05:36 05:36 07:35 WBC 7.79 RBC 4.40 L Hgb 13.6 L Hct 39.0 L MCV 88.6 MCH 30.9 MCHC 34.9 RDW Std Deviation 41.9 RDW Coeff of Mehreen 12.9 Plt Count 219 MPV 10.6 H Immature Gran % (Auto) 0.8 Neut % (Auto) 58.4 Lymph % (Auto) 16.0 Cataño % (Auto) 23.9 Eos % (Auto) 0.3 Baso % (Auto) 0.6 Neut # (Auto) 4.55 Lymph # (Auto) 1.25 Cataño # (Auto) 1.86 H Eos # (Auto) 0.02 Baso # (Auto) 0.05 Immature Gran # (Auto) 0.06 H PT INR APTT 36.2 H PTT Ratio 1.3 Sodium 136 Potassium 3.0 L Chloride 105 Carbon Dioxide 24 Anion Gap 7 BUN 53 H Creatinine 2.56 H D Est Cr Clr Drug Dosing 21.0 Est GFR ( Amer) 25.6 Est GFR (Non-Af Amer) 22.1 BUN/Creatinine Ratio 20.7 H Glucose 113 H Lactate Calcium 7.4 L Magnesium 2.1 Total Bilirubin AST ALT Alkaline Phosphatase Troponin I 0.04 Total Protein Albumin Globulin Albumin/Globulin Ratio Procalcitonin TSH Urine Color Urine Appearance Urine pH Ur Specific [place] Urine Protein Urine Glucose (UA) Urine Ketones Urine Blood Urine Nitrite Urine Bilirubin Urine Urobilinogen Ur Leukocyte Esterase Urine WBC (Auto) Urine RBC (Auto) U Hyaline Cast (Auto) U Epithel Cells (Auto) Urine Bacteria (Auto) Ur Renal Epithelial Cell Urine Yeast Stl C. cayetanensis PCR Stool Rotavirus A PCR Stl Adenov F 40/ PCR Stool Astrovirus (PCR) Stool Campylobacter PCR Stl C. diff Tox B Gene Stl C. diff Tox A/B PCR Stool Cryptosporidium PCR Stl E.coli Shiga Tox PCR Stl Enterotoxigenic E PCR Stool EAEC (PCR) Stl E. histolytica PCR Stool Giardia Lamblia PCR Stool Salmonella PCR Stool Sapovirus (PCR) Stl P. shigelloides PCR Stl Shigella/EIEC PCR St Y.enterocolitica PCR Stool Vibrio (PCR) Stl Vibrio cholerae PCR Stl Norovirus GI/GII PCR Adenovirus (PCR) B. pertussis DNA (PCR) B.parapertussis DNA PCR C. pneumoniae DNA (PCR) Coronavirus OC43 (PCR) Coronavirus HKU1 (PCR) Coronavirus 229E (PCR) SARS-CoV-2 (PCR) Coronavirus NL63 (PCR) Human Metapneumovir PCR Influenza Type A (PCR) Influenza Type B (PCR) M. pneumoniae (PCR) Parainfluenza 1 (PCR) Parainfluenza 2 (PCR) Parainfluenza 3 (PCR) Parainfluenza 4 (PCR) RSV (PCR) Entero/Rhino (PCR) 11/06/21 11/06/21 11/06/21 12:18 13:07 13:07 WBC RBC Hgb Hct MCV MCH MCHC RDW Std Deviation RDW Coeff of Mehreen Plt Count MPV Immature Gran % (Auto) Neut % (Auto) Lymph % (Auto) [place] % (Auto) Eos % (Auto) Baso % (Auto) Neut # (Auto) Lymph # (Auto) [place] # (Auto) Eos # (Auto) Baso # (Auto) Immature Gran # (Auto) PT INR APTT PTT Ratio Sodium 138 Potassium 3.2 L Chloride 108 H Carbon Dioxide 23 Anion Gap 7 BUN 46 H Creatinine 1.98 H D Est Cr Clr Drug Dosing 27.1 Est GFR ( Amer) 34.9 Est GFR (Non-Af Amer) 30.1 BUN/Creatinine Ratio 23.2 H Glucose 105 H Lactate Calcium 8.2 L Magnesium Total Bilirubin AST ALT Alkaline Phosphatase Troponin I 0.04 Total Protein Albumin Globulin Albumin/Globulin Ratio Procalcitonin TSH Urine Color Urine Appearance Urine pH Ur Specific [place] Urine Protein Urine Glucose (UA) Urine Ketones Urine Blood Urine Nitrite Urine Bilirubin Urine Urobilinogen Ur Leukocyte Esterase Urine WBC (Auto) Urine RBC (Auto) U Hyaline Cast (Auto) U Epithel Cells (Auto) Urine Bacteria (Auto) Ur Renal Epithelial Cell Urine Yeast Stl C. cayetanensis PCR Pending Stool Rotavirus A PCR Pending Stl Adenov F 40/41 PCR Pending Stool Astrovirus (PCR) Pending Stool Campylobacter PCR Pending Stl C. diff Tox B Gene Pending Stl C. diff Tox A/B PCR Pending Stool Cryptosporidium PCR Pending Stl E.coli Shiga Tox PCR Pending Stl Enterotoxigenic E PCR Pending Stool EAEC (PCR) Pending Stl E. histolytica PCR Pending Stool Giardia Lamblia PCR Pending Stool Salmonella PCR Pending Stool Sapovirus (PCR) Pending Stl P. shigelloides PCR Pending Stl Shigella/EIEC PCR Pending St Y.enterocolitica PCR Pending Stool Vibrio (PCR) Pending Stl Vibrio cholerae PCR Pending Stl Norovirus GI/GII PCR Pending Adenovirus (PCR) B. pertussis DNA (PCR) B.parapertussis DNA PCR C. pneumoniae DNA (PCR) Coronavirus OC43 (PCR) Coronavirus HKU1 (PCR) Coronavirus 229E (PCR) SARS-CoV-2 (PCR) Coronavirus NL63 (PCR) Human Metapneumovir PCR Influenza Type A (PCR) Influenza Type B (PCR) M. pneumoniae (PCR) Parainfluenza 1 (PCR) Parainfluenza 2 (PCR) Parainfluenza 3 (PCR) Parainfluenza 4 (PCR) RSV (PCR) Entero/Rhino (PCR) Diagnostic Findings Echocardiogram shows a well-preserved left ventricular function and no significant valvular pathology. Medications Administered Current Inpatient Medications Acetaminophen (Acetaminophen 325 Mg Tab) 650 mg PO Q4H PRN PRN Reason: Pain or Fever Stop: 12/06/21 01:44 Amiodarone HCl (Amiodarone 200 Mg Tab) 400 mg PO TIDM LAZARUS Stop: 12/06/21 11:59 Last Admin: 11/06/21 11:55 Dose: 400 mg Documented by: Aspirin (Aspirin 325 Mg Ectab) 325 mg PO DAILY LAZARUS Stop: 12/06/21 08:59 Last Admin: 11/06/21 08:46 Dose: 325 mg Documented by: Cyanocobalamin (Cyanocobalamin (B-12) 500 Mcg Tablet) 1,000 mcg PO Q2D LAZARUS Stop: 12/06/21 08:59 Last Admin: 11/06/21 08:47 Dose: 1,000 mcg Documented by: Gabapentin (Gabapentin 100 Mg Cap) 100 mg PO TID LAZARUS Stop: 12/06/21 08:59 Last Admin: 11/06/21 08:45 Dose: 100 mg Documented by: Dextrose/Sodium Chloride (D5w And Nss) 1,000 mls @ 125 mls/hr IV .Q8H LAZARUS Stop: 12/06/21 00:44 Last Admin: 11/06/21 08:48 Dose: 125 mls/hr Documented by: Heparin Sodium/Dextrose (Heparin Sodium/Dextrose) 25,000 units in 500 mls @ 20 mls/hr IV .Q24H LAZARUS; Protocol Stop: 12/06/21 01:44 Last Titration: 11/06/21 08:15 Dose: 1,000 units/hr, 20 mls/hr Documented by: Potassium Chloride (K Claude / Wtr) 10 meq in 100 mls @ 100 mls/hr IV ONE ONE; Protocol Stop: 11/06/21 14:59 Metoprolol Tartrate (Metoprolol Tartrate 1 Mg/Ml Vial) 2.5 mg IV Q6 PRN; Protocol PRN Reason: Tachycardia Stop: 12/06/21 01:44 Nitroglycerin (Nitroglycerin Sl 0.4 Mg/Tab Tab) 0.4 mg SL UD PRN PRN Reason: Chest Pain Stop: 12/06/21 01:44 Ondansetron HCl (Ondansetron Inj 2 Mg/Ml 2 Ml Vial) 4 mg IV Q6H PRN PRN Reason: Nausea Stop: 12/06/21 01:44 Potassium Chloride (Potassium Chloride Crtab 20 Meq Tabcr) 40 meq PO BID LAZARUS Stop: 12/06/21 20:59 Potassium Chloride (Potassium Chloride Crtab 20 Meq Tabcr) 40 meq PO NOW ONE Stop: 11/06/21 14:16 Triamcinolone Acetonide (Triamcinolone Acet 0.1% Oint 15 Gm Tube) 1 appln TOP HS PRN PRN Reason: SKIN IRRITATION ON HANDS/ARMS Stop: 12/06/21 01:44 Vitamin D (Cholecalciferol 1,000 Units 25 Mcg Tab) 1,000 units PO Q2D LAZARUS Stop: 12/06/21 08:59 Last Admin: 11/06/21 08:47 Dose: 1,000 units Documented by: (1) Acute renal failure Acute renal failure type: unspecified Qualified Code(s): N17.9 - Acute kidney failure, unspecified
[2021-11-06] MEDS ORDERED: POTASSIUM CHLORIDE CRTAB 20 MEQ TABCR PO ONE (14:15)
[2021-11-06 14:58] LABS: Partial Thromboplastin Ratio 2.4
[2021-11-06 15:17] LABS: Partial Thromboplastin Time 64.9 Seconds (21.0-31.0)
[2021-11-06 15:27] LABS: Adenovirus F 40/41 PCR Not Detected (NotDetected); Astrovirus PCR Not Detected (NotDetected); Campylobacter PCR Not Detected (NotDetected); Clostridium diff Toxin A/B PCR Not Detected (NotDetected); Cryptosporidium PCR Not Detected (NotDetected); Cyclospora cayetanensis PCR Not Detected (NotDetected); Entamoeba histolytica PCR Not Detected (NotDetected); Enteroaggregative E.coli(EAEC) Not Detected (NotDetected); Enteropathogenic E.coli (EPEC) Not Detected (NotDetected); Enterotoxigenic E.coli (ETEC) Not Detected (NotDetected); Giardia lamblia PCR Not Detected (NotDetected); Norovirus GI/GII PCR Not Detected (NotDetected); Plesiomonas shigelloides PCR Not Detected (NotDetected); Rotavirus A PCR Not Detected (NotDetected); Sapovirus PCR Not Detected (NotDetected); Shiga-like Toxin E.coli (STEC) Not Detected (NotDetected); Shigella/Enteroinvasive E.coli Not Detected (NotDetected); Vibrio cholerae PCR Not Detected (NotDetected); Vibrio species PCR Not Detected (NotDetected); Yersinia enterocolitica PCR Not Detected (NotDetected)
[2021-11-06 15:51] LABS: Salmonella PCR DETECTED (NotDetected)
[2021-11-06] MEDS ORDERED: LOPERAMIDE HCL 2 MG CAP PO PRN (16:01)
[2021-11-06] MEDS: cefTRIAXone SODIUM 1,000 MG in DEXTROSE 5% 50 ML IV SCH (17:35)
[2021-11-06] MEDS: MAGNESIUM CHLORIDE 64MG DELAYED REL TAB PO SCH (20:46)
[2021-11-06] MEDS ORDERED: SIMVASTATIN 40 MG TAB PO SCH (21:00)
[2021-11-07] MEDS: HEPARIN SODIUM/DEXTROSE 25,000 UNITS/500 ML BAG IV SCH (02:48)
[2021-11-07] MEDS: D5W AND NSS 1,000 ML IV SCH ×3 (04:38→22:30)
[2021-11-07 06:43] LABS: Basophils # (auto) 0.09 K/uL (0-0.2); Eosinophils % (auto) 1.1 %; Hematocrit (blood only) 41.5 % (42-52); Hemoglobin 14.1 g/dL (14.0-18.0); Immature Granulocytes # (auto) 0.15 K/uL (0.00-0.02); Immature Granulocytes % (auto) 1.7 %; Lymphocytes # (auto) 2.17 K/uL (1.2-3.4); Lymphocytes % (auto) 24.4 %; Mean Corpuscular Hemoglobin 30.7 pg (25-34); Mean Corpuscular Volume 90.4 fL (80-100); Mean Platelet Volume 11.1 fL (7.4-10.4); Monocytes % (auto) 19.1 %; Neutrophils # (auto) 4.69 K/uL (1.4-6.5); Neutrophils % (auto) 52.7 %; Platelet Count 254 K/uL (130-400); RDW Coefficient of Variation 13.3 % (11.5-14.5); RDW Standard Deviation 43.6 fL (36.4-46.3); Red Blood Count 4.59 M/uL (4.7-6.1)
[2021-11-07 06:51] LABS: BUN Creatinine Ratio 23.3 (10-20); Calcium 7.6 mg/dl (8.5-10.1); Creatinine Clr Calc Pharmacy 42.7 ml/min; Est GFR (African American) 56.5 ml/min; Est GFR (Non-African American) 48.7 ml/min; Magnesium 1.9 mg/dl (1.7-2.4); Potassium 3.6 mmol/L (3.5-5.1)
[2021-11-07 07:03] LABS: Partial Thromboplastin Ratio 2.1
[2021-11-07 07:19] LABS: Partial Thromboplastin Time 56.9 Seconds (21.0-31.0)
[2021-11-07] MEDS: GABAPENTIN 100 MG CAP PO SCH ×3 (08:27→21:20)
[2021-11-07] MEDS: POTASSIUM CHLORIDE CRTAB 20 MEQ TABCR PO SCH ×2 (08:27→21:20)
[2021-11-07] MEDS: MAGNESIUM CHLORIDE 64MG DELAYED REL TAB PO SCH ×2 (08:27→21:20)
[2021-11-07] MEDS: AMIODARONE 200 MG TAB PO SCH ×3 (08:28→17:35)
[2021-11-07] MEDS: ASPIRIN 325 MG ECTAB PO SCH (08:28)
[2021-11-07] MEDS: cefTRIAXone SODIUM 1,000 MG in DEXTROSE 5% 50 ML IV SCH (08:28)
[2021-11-07] MEDS: SACCHAROMYCES BOULARDII 250 MG CAP PO SCH (08:28)
--- NOTE | 2021-11-07 08:35 | Electrocardiogram Report ---
Test Reason : Blood Pressure : / mmHG Vent. Rate : 080 BPM Atrial Rate : 250 BPM P-R Int : 000 ms QRS Dur : 088 ms QT Int : 382 ms P-R-T Axes : 000 067 057 degrees QTc Int : 440 ms Atrial fibrillation Diffuse Nonspecific ST and T wave abnormality Abnormal ECG When compared with ECG of 05-NOV-2021 23:13, Multifocal atrial tachycardia no longer present HR has decreased by 34 bpm Confirmed by Rico Godoy ([id number]) on 11/07/2021 8:35:11 AM Referred By: REFERRED SELF Confirmed By:Rico Godoy
--- NOTE | 2021-11-07 13:03 | Cardiology Progress Note ---
Date of Service November 07, 2021 Assessment & Plan (1) Acute renal failure: (2) Acute dehydration: (3) Near syncope: (4) Acute hypokalemia: (5) Atrial fibrillation, new onset: Plan: The patient has persistent atrial fibrillation. His heart rates are better controlled. He is tolerating the amiodarone. I discussed the option of a transesophageal echocardiogram followed by cardioversion with the patient. Explained the risk, benefit and intent to the procedures and he is willing to proceed. We will plan on having this completed tomorrow if he does not spontaneously convert to normal sinus rhythm. Admission and Anticipated Discharge Date Admission Date: November 06, 2021 Subjective The patient had an uneventful night and has no new complaints today. He remains in a persistent atrial fibrillation Review of Systems Review of Systems: Review of Systems: See HPI for pertinent positives. All other 10 point review of systems are negative. Physical Exam Physical Exam: General: no acute distress and stated age Head: normocephalic, no masses, lesions, tenderness or abnormalities Eyes: conjunctiva are pink and non-injected, sclera clear Neck: supple, no adenopathy, no bruits, normal jugular venous pulse, no hepatojugular reflux Chest: normal shape and normal respiratory effort Lungs: clear to auscultation and percussion Cardiac Exam: - irregular rate & rhythm, no murmurs gallops or rubs - normal S1, normal S2 Pulses: 2(+) throughout Abdomen: abdomen soft, non-tender, no abnormal masses and no hepatosplenomegaly Musculoskeletal: no gait disturbance, no joint inflammation, no deforming arthritis Extremities: no edema and no cyanosis Neuro: grossly normal exam Results & Data ([facility]) Vital Signs (Past 12 Hours) Vital Signs Temp Pulse Pulse Resp BP Pulse Ox 11/07/21 11:54 37.2 C 67 16 123/75 95 11/07/21 10:45 90 11/07/21 07:58 36.5 C 102 H 14 150/70 H 93 11/07/21 03:54 36.7 C 101 H 18 108/68 96 Laboratory Results Laboratory Results - last 24 hr 11/05/21 11/06/21 11/06/21 20:49 12:18 13:07 WBC RBC Hgb Hct MCV MCH MCHC RDW Std Deviation RDW Coeff of Mehreen Plt Count MPV Immature Gran % (Auto) Neut % (Auto) Lymph % (Auto) [place] % (Auto) Eos % (Auto) Baso % (Auto) Neut # (Auto) Lymph # (Auto) [place] # (Auto) Eos # (Auto) Baso # (Auto) Immature Gran # (Auto) APTT PTT Ratio Sodium 138 Potassium 3.2 L Chloride 108 H Carbon Dioxide 23 Anion Gap 7 BUN 46 H Creatinine 1.98 H D Est Cr Clr Drug Dosing 27.1 Est GFR ( Amer) 34.9 Est GFR (Non-Af Amer) 30.1 BUN/Creatinine Ratio 23.2 H Glucose 105 H Calcium 8.2 L Magnesium Troponin I 0.06 H* 0.04 Stl C. cayetanensis PCR Stool Rotavirus A PCR Stl Adenov F PCR Stool Astrovirus (PCR) Stool Campylobacter PCR Stl C. diff Tox B Gene Cancelled Stl C. diff Tox A/B PCR Stool Cryptosporidium PCR Stl E.coli Shiga Tox PCR Stl Enterotoxigenic E PCR Stool EPEC (PCR) Stool EAEC (PCR) Stl E. histolytica PCR Stool Giardia Lamblia PCR Stool Salmonella PCR Stool Sapovirus (PCR) Stl P. shigelloides PCR Stl Shigella/EIEC PCR St Y.enterocolitica PCR Stool Vibrio (PCR) Stl Vibrio cholerae PCR Stl Norovirus GI/GII PCR 11/06/21 11/06/21 11/07/21 13:07 14:16 06:02 WBC 8.90 RBC 4.59 L Hgb 14.1 Hct 41.5 L MCV 90.4 MCH 30.7 MCHC 34.0 RDW Std Deviation 43.6 RDW Coeff of Mehreen 13.3 Plt Count 254 MPV 11.1 H Immature Gran % (Auto) 1.7 Neut % (Auto) 52.7 Lymph % (Auto) 24.4 [place] % (Auto) 19.1 Eos % (Auto) 1.1 Baso % (Auto) 1.0 Neut # (Auto) 4.69 Lymph # (Auto) 2.17 [place] # (Auto) 1.70 H Eos # (Auto) 0.10 Baso # (Auto) 0.09 Immature Gran # (Auto) 0.15 H APTT 64.9 H* PTT Ratio 2.4 Sodium Potassium Chloride Carbon Dioxide Anion Gap BUN Creatinine Est Cr Clr Drug Dosing Est GFR ( Amer) Est GFR (Non-Af Amer) BUN/Creatinine Ratio Glucose Calcium Magnesium Troponin I Stl C. cayetanensis PCR Not Detected Stool Rotavirus A PCR Not Detected Stl Adenov F 40/ PCR Not Detected Stool Astrovirus (PCR) Not Detected Stool Campylobacter PCR Not Detected Stl C. diff Tox B Gene Stl C. diff Tox A/B PCR Not Detected Stool Cryptosporidium PCR Not Detected Stl E.coli Shiga Tox PCR Not Detected Stl Enterotoxigenic E PCR Not Detected Stool EPEC (PCR) Not Detected Stool EAEC (PCR) Not Detected Stl E. histolytica PCR Not Detected Stool Giardia Lamblia PCR Not Detected Stool Salmonella PCR DETECTED A* Stool Sapovirus (PCR) Not Detected Stl P. shigelloides PCR Not Detected Stl Shigella/EIEC PCR Not Detected St Y.enterocolitica PCR Not Detected Stool Vibrio (PCR) Not Detected Stl Vibrio cholerae PCR Not Detected Stl Norovirus GI/GII PCR Not Detected 11/07/21 11/07/21 06:02 06:02 WBC RBC Hgb Hct MCV MCH MCHC RDW Std Deviation RDW Coeff of Mehreen Plt Count MPV Immature Gran % (Auto) Neut % (Auto) Lymph % (Auto) [place] % (Auto) Eos % (Auto) Baso % (Auto) Neut # (Auto) Lymph # (Auto) [place] # (Auto) Eos # (Auto) Baso # (Auto) Immature Gran # (Auto) APTT 56.9 H* PTT Ratio 2.1 Sodium 140 Potassium 3.6 Chloride 111 H Carbon Dioxide 21 Anion Gap 8 BUN 31 H Creatinine 1.33 D Est Cr Clr Drug Dosing 42.7 Est GFR ( Amer) 56.5 Est GFR (Non-Af Amer) 48.7 BUN/Creatinine Ratio 23.3 H Glucose 84 Calcium 7.6 L Magnesium 1.9 Troponin I Stl C. cayetanensis PCR Stool Rotavirus A PCR Stl Adenov F PCR Stool Astrovirus (PCR) Stool Campylobacter PCR Stl C. diff Tox B Gene Stl C. diff Tox A/B PCR Stool Cryptosporidium PCR Stl E.coli Shiga Tox PCR Stl Enterotoxigenic E PCR Stool EPEC (PCR) Stool EAEC (PCR) Stl E. histolytica PCR Stool Giardia Lamblia PCR Stool Salmonella PCR Stool Sapovirus (PCR) Stl P. shigelloides PCR Stl Shigella/EIEC PCR St Y.enterocolitica PCR Stool Vibrio (PCR) Stl Vibrio cholerae PCR Stl Norovirus GI/GII PCR Medications Administered Current Inpatient Medications Acetaminophen (Acetaminophen 325 Mg Tab) 650 mg PO Q4H PRN PRN Reason: Pain or Fever Stop: 12/06/21 01:44 Amiodarone HCl (Amiodarone 200 Mg Tab) 400 mg PO TIDM LAZARUS Stop: 12/06/21 11:59 Last Admin: 11/07/21 11:57 Dose: 400 mg Documented by: Aspirin (Aspirin 325 Mg Ectab) 325 mg PO DAILY [facility]ARUS Stop: 12/06/21 08:59 Last Admin: 11/07/21 08:28 Dose: 325 mg Documented by: Cyanocobalamin (Cyanocobalamin (B-12) 500 Mcg Tablet) 1,000 mcg PO Q2D [facility]ARUS Stop: 12/06/21 08:59 Last Admin: 11/06/21 08:47 Dose: 1,000 mcg Documented by: Gabapentin (Gabapentin 100 Mg Cap) 100 mg PO TID LA[facility]ARUS Stop: 12/06/21 08:59 Last Admin: 11/07/21 08:27 Dose: 100 mg Documented by: Dextrose/Sodium Chloride (D5w And Nss) 1,000 mls @ 125 mls/hr IV .Q8H [facility] Stop: 12/06/21 00:44 Last Admin: 11/07/21 04:38 Dose: 125 mls/hr Documented by: Heparin Sodium/Dextrose (Heparin Sodium/Dextrose) 25,000 units in 500 mls @ 20 mls/hr IV .Q24H [facility]AR[facility]; Protocol Stop: 12/06/21 01:44 Last Titration: 11/07/21 07:23 Dose: 1,000 units/hr, 20 mls/hr Documented by: Ceftriaxone Sodium 1,000 mg/ (Dextrose) 60 mls @ 100 mls/hr IV DAILY [facility]; Protocol Stop: 11/11/21 16:29 Last Infusion: 11/07/21 09:07 Dose: Infused Documented by: Loperamide HCl (Loperamide Hcl 2 Mg Cap) 2 mg PO Q2HWA PRN PRN Reason: Diarrhea Stop: 12/06/21 16:00 Magnesium Chloride (Magnesium Chloride 64mg Delayed Rel Tab) 64 mg PO BID [facility] Stop: 12/06/21 20:59 Last Admin: 11/07/21 08:27 Dose: 64 mg Documented by: Metoprolol Tartrate (Metoprolol Tartrate 1 Mg/Ml Vial) 2.5 mg IV Q6 PRN; Protocol PRN Reason: Tachycardia Stop: 12/06/21 01:44 Nitroglycerin (Nitroglycerin Sl 0.4 Mg/Tab Tab) 0.4 mg SL UD PRN PRN Reason: Chest Pain Stop: 12/06/21 01:44 Ondansetron HCl (Ondansetron Inj 2 Mg/Ml 2 Ml Vial) 4 mg IV Q6H PRN PRN Reason: Nausea Stop: 12/06/21 01:44 Potassium Chloride (Potassium Chloride Crtab 20 Meq Tabcr) 40 meq PO BID [facility] Stop: 11/09/21 20:59 Last Admin: 11/07/21 08:27 Dose: 40 meq Documented by: Saccharomyces Boulardii (Saccharomyces Boulardii 250 Mg Cap) 250 mg PO DAILY [facility] Stop: 12/07/21 08:59 Last Admin: 11/07/21 08:28 Dose: 250 mg Documented by: Triamcinolone Acetonide (Triamcinolone Acet 0.1% Oint 15 Gm Tube) 1 appln TOP HS PRN PRN Reason: SKIN IRRITATION ON HANDS/ARMS Stop: 12/06/21 01:44 Vitamin D (Cholecalciferol 1,000 Units 25 Mcg Tab) 1,000 units PO Q2D [facility]ARUS Stop: 12/06/21 08:59 Last Admin: 11/06/21 08:47 Dose: 1,000 units Documented by: (1) Acute renal failure Acute renal failure type: unspecified Qualified Code(s): N17.9 - Acute kidney failure, unspecified
--- NOTE | 2021-11-07 13:10 | Hospitalist Progress Note ---
Date of Service November 07, 2021 Assessment & Plan Plan: 1. New onset A fib with RVR -currently on heparin drip -started Amiodarone. Management per Cardiology -TTE reviewed, overall unremarkable -TSH normal 2. Hypokalemia -due to ongoing diarrhea -continue with aggressive repletion -expect it would improve as his diarrhea resolves 3. Salmonella Diarrhea -stool cultures +salmonella -start ceftriaxone, plan for 5 day course -imodium PRN 4. Mildly elevated troponin -likely demand in setting of A fib RVR 5. ASHELY on CKD stage 3 -ASHELY in setting of GI losses -hold nephrotoxic agents -improved with IVF. will continue to monitor 6. HTN -holding losartan -BP low normal currently 7. Carotid artery disease -aspirin, statin DVT ppx already on heparin drip Admission and Anticipated Discharge Date Admission Date: November 06, 2021 Subjective Feels much better today Diarrhea has subsided somewhat. yesterday episodes were innumerable. Today, just 2 so far Appetite is poor Physical Exam Physical Exam: Appears younger than stated age, no acute distress ENMT: Mucous membrane moist Respiratory: Breathing comfortably on room air, no wheezing/rhonchi/rales Cardiovascular: irregular but not rapid Gastrointestinal (Abdomen): soft, non tender Musculoskeletal: no edema Results & Data Results & Data ([facility]) Vital Signs (Past 12 Hours) Vital Signs Temp Pulse Pulse Resp BP Pulse Ox 11/07/21 11:54 37.2 C 67 16 123/75 95 11/07/21 10:45 90 11/07/21 07:58 36.5 C 102 H 14 150/70 H 93 11/07/21 03:54 36.7 C 101 H 18 108/68 96 Laboratory Results Short CBC 11/07/21 Range/Units 06:02 WBC 8.90 (4.8-10.8) K/uL Hgb 14.1 (14.0-18.0) g/dL Hct 41.5 L (42-52) % Plt Count 254 (130-400) K/uL BMP 11/07/21 06:02 Sodium 140 Potassium 3.6 Chloride 111 H Carbon Dioxide 21 BUN 31 H Creatinine 1.33 D Glucose 84 Calcium 7.6 L Cardiac Enzymes 11/05/21 Range/Units 20:49 Troponin I 0.06 H* (0-0.04) ng/ml Medications Administered Current Inpatient Medications Acetaminophen (Acetaminophen 325 Mg Tab) 650 mg PO Q4H PRN PRN Reason: Pain or Fever Stop: 12/06/21 01:44 Amiodarone HCl (Amiodarone 200 Mg Tab) 400 mg PO TIDM LAZARUS Stop: 12/06/21 11:59 Last Admin: 11/07/21 11:57 Dose: 400 mg Documented by: Aspirin (Aspirin 325 Mg Ectab) 325 mg PO DAILY [facility] Stop: 12/06/21 08:59 Last Admin: 11/07/21 08:28 Dose: 325 mg Documented by: Cyanocobalamin (Cyanocobalamin (B-12) 500 Mcg Tablet) 1,000 mcg PO Q2D [facility]ARUS Stop: 12/06/21 08:59 Last Admin: 11/06/21 08:47 Dose: 1,000 mcg Documented by: Gabapentin (Gabapentin 100 Mg Cap) 100 mg PO TID [facility] Stop: 12/06/21 08:59 Last Admin: 11/07/21 08:27 Dose: 100 mg Documented by: Dextrose/Sodium Chloride (D5w And Nss) 1,000 mls @ 125 mls/hr IV .Q8H [facility] Stop: 12/06/21 00:44 Last Admin: 11/07/21 04:38 Dose: 125 mls/hr Documented by: Heparin Sodium/Dextrose (Heparin Sodium/Dextrose) 25,000 units in 500 mls @ 20 mls/hr IV .Q24H [facility]; Protocol Stop: 12/06/21 01:44 Last Titration: 11/07/21 07:23 Dose: 1,000 units/hr, 20 mls/hr Documented by: Ceftriaxone Sodium 1,000 mg/ (Dextrose) 60 mls @ 100 mls/hr IV DAILY [facility]; Protocol Stop: 11/11/21 16:29 Last Infusion: 11/07/21 09:07 Dose: Infused Documented by: Sodium Chloride (Nss 1000ml) 1,000 mls @ 80 mls/hr IV .[id number] [facility] Stop: 12/07/21 23:44 Loperamide HCl (Loperamide Hcl 2 Mg Cap) 2 mg PO Q2HWA PRN PRN Reason: Diarrhea Stop: 12/06/21 16:00 Magnesium Chloride (Magnesium Chloride 64mg Delayed Rel Tab) 64 mg PO BID [facility] Stop: 12/06/21 20:59 Last Admin: 11/07/21 08:27 Dose: 64 mg Documented by: Metoprolol Tartrate (Metoprolol Tartrate 1 Mg/Ml Vial) 2.5 mg IV Q6 PRN; Protocol PRN Reason: Tachycardia Stop: 12/06/21 01:44 Nitroglycerin (Nitroglycerin Sl 0.4 Mg/Tab Tab) 0.4 mg SL UD PRN PRN Reason: Chest Pain Stop: 12/06/21 01:44 Ondansetron HCl (Ondansetron Inj 2 Mg/Ml 2 Ml Vial) 4 mg IV Q6H PRN PRN Reason: Nausea Stop: 12/06/21 01:44 Potassium Chloride (Potassium Chloride Crtab 20 Meq Tabcr) 40 meq PO BID [facility] Stop: 11/09/21 20:59 Last Admin: 11/07/21 08:27 Dose: 40 meq Documented by: Saccharomyces Boulardii (Saccharomyces Boulardii 250 Mg Cap) 250 mg PO DAILY [facility] Stop: 12/07/21 08:59 Last Admin: 11/07/21 08:28 Dose: 250 mg Documented by: Triamcinolone Acetonide (Triamcinolone Acet 0.1% Oint 15 Gm Tube) 1 appln TOP HS PRN PRN Reason: SKIN IRRITATION ON HANDS/ARMS Stop: 12/06/21 01:44 Vitamin D (Cholecalciferol 1,000 Units 25 Mcg Tab) 1,000 units PO Q2D [facility]ARUS Stop: 12/06/21 08:59 Last Admin: 11/06/21 08:47 Dose: 1,000 units Documented by:
--- NOTE | 2021-11-07 20:07 | Anesthesiology Consultation ---
Date of Service November 07, 2021 Assessment & Plan Chart Review Chart Review: Acceptable Risk for Surgery and Patient NOT seen in Pre Admission Testing Consults Requested none ASA ASA4 Proposed Anesthesia Anesthesia Type: MAC History Surgery Operation Date: 11/08/21 07:15 Proposed Procedures p Transesophageal Echo w/Anesthesia - Carlos Lynn DO s Cardioversion - Carlos Lynn DO Height/Weight Height: 5 ft 10 in Weight: 73.4 kg Allergies Allergy/AdvReac Type Severity Reaction Status Date / Time GAB Inhibitors AdvReac Intermediate Cough Verified 11/05/21 22:29 Medications Home Medications Medication Instructions Recorded Confirmed Last Taken Turmeric/Curcumin 500 mg PO DAILY 11/05/21 11/05/21 11/05/21 aspirin 325 mg tablet 325 mg PO DAILY 11/05/21 11/05/21 11/05/21 cholecalciferol (vitamin D3) 25 25 mcg PO Q OTHER DAY 11/05/21 11/05/21 11/04/21 mcg (1,000 unit) capsule (Vitamin D3) cyanocobalamin (vitamin B-12) 1,000 mcg PO Q OTHER DAY 11/05/21 11/05/21 11/04/21 1,000 mcg tablet (Vitamin B-12) gabapentin 100 mg capsule 100 mg PO TID 11/05/21 11/05/21 Unknown garlic 500 mg capsule 500 mg PO DAILY 11/05/21 11/05/21 11/05/21 losartan 50 mg tablet 50 mg PO DAILY 11/05/21 11/05/21 11/05/21 simvastatin 40 mg tablet 40 mg PO HS 11/05/21 11/05/21 11/04/21 triamcinolone acetonide 0.1 % 1 applic TOPICAL HS PRN 11/05/21 11/05/21 Unknown topical ointment vit A-vit [id number] lozenges 1 keisha PO DIRECTED PRN 11/05/21 11/05/21 Unknown (Zinc (with A and C) Lozenges) Active Medications Generic Name Dose Route Start Last Admin Trade Name Freq PRN Reason Stop Dose Admin Amiodarone HCl 400 mg 11/06/21 12:00 11/07/21 17:35 Amiodarone 200 Mg Tab PO 12/06/21 11:59 400 mg TIDM LAZARUS Administration Aspirin 325 mg 11/06/21 09:00 11/07/21 08:28 Aspirin 325 Mg Ectab PO 12/06/21 08:59 325 mg DAILY [facility] Administration Cyanocobalamin 1,000 mcg 11/06/21 09:00 11/06/21 08:47 Cyanocobalamin (B-12) 500 Mcg Tablet PO 12/06/21 08:59 1,000 mcg Q2D [facility]ARUS Administration Gabapentin 100 mg 11/06/21 09:00 11/07/21 13:56 Gabapentin 100 Mg Cap PO 12/06/21 08:59 100 mg TID [facility]ARUS Administration Dextrose/Sodium Chloride 1,000 mls @ 125 mls/hr 11/06/21 00:45 11/07/21 13:57 D5w And Nss IV 12/06/21 00:44 125 mls/hr .Q8H [facility] Administration Heparin Sodium/Dextrose 25,000 units in 500 mls @ 20 mls/hr 11/06/21 01:45 11/07/21 19:07 Heparin Sodium/Dextrose IV 12/06/21 01:44 1,000 units/hr .Q24H LA[facility]ARUS 20 mls/hr Titration Protocol 1,000 UNITS/HR Ceftriaxone Sodium 1,000 mg/ 60 mls @ 100 mls/hr 11/06/21 16:30 11/07/21 09:07 Dextrose IV 11/11/21 16:29 Infused DAILY [facility]US Infusion Protocol Magnesium Chloride 64 mg 11/06/21 21:00 11/07/21 08:27 Magnesium Chloride 64mg Delayed Rel Tab PO 12/06/21 20:59 64 mg BID [facility]ARUS Administration Potassium Chloride 40 meq 11/06/21 21:00 11/07/21 08:27 Potassium Chloride Crtab 20 Meq Tabcr PO 11/09/21 20:59 40 meq BID [facility]ARUS Administration Saccharomyces Boulardii 250 mg 11/07/21 09:00 11/07/21 08:28 Saccharomyces Boulardii 250 Mg Cap PO 12/07/21 08:59 250 mg DAILY [facility]US Administration Vitamin D 1,000 units 11/06/21 09:00 11/06/21 08:47 Cholecalciferol 1,000 Units 25 Mcg Tab PO 12/06/21 08:59 1,000 units Q2D [facility]US Administration Past Medical History Medical History High blood pressure Exercise / Class Metabolic Activity III < 4 Walking/Shop/Light housework Past Surgical History Surgical History History of orthopedic surgery Past Anesthesia History No Hx of Anesthesia Complications and No Family Hx of Anesthesia Complications History of PONV No Hx of PONV and No Hx of Motion Sickness Social History Smoking Status: Never smoker Hx Alcohol Use: Yes alcohol intake frequency: holidays/special occasions only Hx Substance Use: No Physical Exam Vital Signs Last Vital Signs Temp 36.9 C 11/07/21 20:00 Pulse 66 11/07/21 20:00 Resp 16 11/07/21 20:00 BP 137/69 11/07/21 20:00 Pulse Ox 95 11/07/21 20:00 Testing Laboratory Results 11/07/21 06:02 11/07/21 06:02 PT 11.2 Seconds (9.0-12.0) 11/06/21 02:58 INR 1.1 (0.9-1.1) 11/06/21 02:58 APTT 56.9 Seconds (21.0-31.0) H* 11/07/21 06:02 Urine Color Dark Yellow 11/05/21 23:02 Urine Appearance Cloudy (Clear) A 11/05/21 23:02 Urine pH 5.5 (4.5-7.5) 11/05/21 23:02 Ur Specific Drew 1.027 (1.000-1.030) 11/05/21 23:02 Urine Protein 2+ (Negative) H 11/05/21 23:02 Urine Glucose (UA) Negative (Negative) 11/05/21 23:02 Urine Ketones Trace (Negative) H 11/05/21 23:02 Urine Nitrite Negative (Negative) 11/05/21 23:02 Ur Leukocyte Esterase Trace (Negative) H 11/05/21 23:02 Urine WBC (Auto) 10-30 /hpf (0-5) H 11/05/21 23:02 Urine RBC (Auto) 0-4 /hpf (0-4) 11/05/21 23:02 U Hyaline Cast (Auto) >30 /lpf (0-5) H 11/05/21 23:02 U Epithel Cells (Auto) >30 /lpf (0-5) H 11/05/21 23:02 Urine Bacteria (Auto) Negative (Negative) 11/05/21 23:02 11/05/21 23:02 Urine Culture - Preliminary Urine,Clean Catch Staphylococcus species 11/05/21 22:20 Aerobic Blood Culture - Preliminary Blood No growth in Aerobic bottle after 24 hours. Anaerobic Blood Culture - Final 11/05/21 22:20 Aerobic Blood Culture - Preliminary Blood No growth in Aerobic bottle after 24 hours. Anaerobic Blood Culture - Preliminary No growth in Anaerobic bottle after 24 hours. Electrocardiogram Date: 11/07/21 Findings: + NSST changes and + AFIB @ (at 80) Chest X-Ray Date: 11/05/21 Findings: + NAD and + other (c/w emphysema) Echocardiogram Date: 11/06/21 EF: 65% LV Function: normal RWMA: + none Valvular Disease: + no significant valvular disease
[2021-11-07] MEDS ORDERED: SODIUM CHLORIDE 0.9% 1000ML 1,000 ML IV SCH (23:45)
[2021-11-08] MEDS: HEPARIN SODIUM/DEXTROSE 25,000 UNITS/500 ML BAG IV SCH (04:26)
[2021-11-08] MEDS: D5W AND NSS 1,000 ML IV SCH (05:28)
--- NOTE | 2021-11-08 07:04 | Electrocardiogram Report ---
Test Reason : Blood Pressure : / mmHG Vent. Rate : 068 BPM Atrial Rate : 068 BPM P-R Int : 140 ms QRS Dur : 086 ms QT Int : 416 ms P-R-T Axes : 076 064 063 degrees QTc Int : 442 ms Normal sinus rhythm Normal ECG When compared with ECG of 07-NOV-2021 06:56, Sinus rhythm has replaced Atrial fibrillation Confirmed by Rico Godoy ([id number]) on 11/08/2021 7:04:16 AM Referred By: REFERRED SELF Confirmed By:Rico Godoy
[2021-11-08 07:07] LABS: Partial Thromboplastin Ratio 2.1
--- NOTE | 2021-11-08 07:10 | Electrocardiogram Report ---
Test Reason : Blood Pressure : / mmHG Vent. Rate : 058 BPM Atrial Rate : 058 BPM P-R Int : 148 ms QRS Dur : 086 ms QT Int : 448 ms P-R-T Axes : 075 067 061 degrees QTc Int : 439 ms Sinus bradycardia Otherwise normal ECG When compared with ECG of 07-NOV-2021 14:54, No significant change was found Confirmed by Rico Godoy ([id number]) on 11/08/2021 7:10:11 AM Referred By: REFERRED SELF Confirmed By:Rico Godoy
[2021-11-08 07:23] LABS: BUN Creatinine Ratio 17.1 (10-20); Calcium 7.7 mg/dl (8.5-10.1); Creatinine Clr Calc Pharmacy 51.2 ml/min; Est GFR (African American) 70.3 ml/min; Est GFR (Non-African American) 60.7 ml/min; Magnesium 1.6 mg/dl (1.7-2.4); Potassium 4.5 mmol/L (3.5-5.1)
[2021-11-08 07:39] LABS: Partial Thromboplastin Time 58.7 Seconds (21.0-31.0)
[2021-11-08] MEDS: MAGNESIUM SULFATE / D5W 1 GM/100 ML BAG IV SCH ×2 (09:09→10:49)
[2021-11-08] MEDS: AMIODARONE 200 MG TAB PO SCH (09:09)
[2021-11-08] MEDS: CHOLECALCIFEROL 1,000 UNITS 25 MCG TAB PO SCH (09:10)
[2021-11-08] MEDS: ASPIRIN 325 MG ECTAB PO SCH (09:10)
[2021-11-08] MEDS: MAGNESIUM CHLORIDE 64MG DELAYED REL TAB PO SCH (09:10)
[2021-11-08] MEDS: GABAPENTIN 100 MG CAP PO SCH (09:10)
[2021-11-08] MEDS: CYANOCOBALAMIN (B-12) 500 MCG TABLET PO SCH (09:11)
[2021-11-08] MEDS: SACCHAROMYCES BOULARDII 250 MG CAP PO SCH (09:11)
[2021-11-08] MEDS ORDERED: APIXABAN 5 MG TABLET PO SCH (09:45)
--- NOTE | 2021-11-08 09:55 | Cardiology Progress Note ---
Date of Service November 08, 2021 Assessment & Plan (1) Acute renal failure: (2) Acute dehydration: (3) Near syncope: (4) Acute hypokalemia: (5) Atrial fibrillation, new onset: Plan: The patient is maintaining sinus rhythm. I believe that he can be discharged home with outpatient follow-up. I will arrange for follow-up through our clinic. He should be discharged home on amiodarone 200 mg twice daily along with Eliquis 5 mg twice daily. The patient has been taking 325 mg of aspirin due to history of carotid artery disease however, while on the Eliquis I think that he should definitely be on aspirin 81 mg daily. Admission and Anticipated Discharge Date Admission Date: November 06, 2021 Subjective The patient had an uneventful night. He converted to sinus rhythm spontaneously yesterday afternoon. The cardioversion was canceled. Review of Systems Review of Systems: Review of Systems: See HPI for pertinent positives. All other 10 point review of systems are negative. Physical Exam Physical Exam: General: no acute distress and stated age Head: normocephalic, no masses, lesions, tenderness or abnormalities Eyes: conjunctiva are pink and non-injected, sclera clear Neck: supple, no adenopathy, no bruits, normal jugular venous pulse, no hepatojugular reflux Chest: normal shape and normal respiratory effort Lungs: clear to auscultation and percussion Cardiac Exam: - regular rate & rhythm, no murmurs gallops or rubs - normal S1, normal S2 Pulses: 2(+) throughout Abdomen: abdomen soft, non-tender, no abnormal masses and no hepatosplenomegaly Musculoskeletal: no gait disturbance, no joint inflammation, no deforming arthritis Extremities: no edema and no cyanosis Neuro: grossly normal exam Results & Data ([facility]) Vital Signs (Past 12 Hours) Vital Signs Temp Pulse Resp BP Pulse Ox 11/08/21 08:41 36.8 C 56 L 18 133/70 97 11/08/21 03:51 36.7 C 58 L 18 126/74 94 11/08/21 00:04 36.8 C 62 16 130/69 94 Laboratory Results Laboratory Results - last 24 hr 11/08/21 11/08/21 06:06 06:06 APTT 58.7 H* PTT Ratio 2.1 Sodium 139 Potassium 4.5 D Chloride 115 H Carbon Dioxide 20 L Anion Gap 4 BUN 19 Creatinine 1.11 Est Cr Clr Drug Dosing 51.2 Est GFR ( Amer) 70.3 Est GFR (Non-Af Amer) 60.7 BUN/Creatinine Ratio 17.1 Glucose 98 Calcium 7.7 L Magnesium 1.6 L Medications Administered Current Inpatient Medications Acetaminophen (Acetaminophen 325 Mg Tab) 650 mg PO Q4H PRN PRN Reason: Pain or Fever Stop: 12/06/21 01:44 Amiodarone HCl (Amiodarone 200 Mg Tab) 200 mg PO BIDM [facility] Stop: 12/08/21 16:59 Apixaban (Apixaban 5 Mg Tablet) 5 mg PO BID [facility] Stop: 12/08/21 09:44 Aspirin (Aspirin 81 Mg Ectab) 81 mg PO DAILY [facility] Stop: 12/09/21 08:59 Cyanocobalamin (Cyanocobalamin (B-12) 500 Mcg Tablet) 1,000 mcg PO Q2D [facility] Stop: 12/06/21 08:59 Last Admin: 11/08/21 09:11 Dose: 1,000 mcg Documented by: Gabapentin (Gabapentin 100 Mg Cap) 100 mg PO TID [facility] Stop: 12/06/21 08:59 Last Admin: 11/08/21 09:10 Dose: 100 mg Documented by: Ceftriaxone Sodium 1,000 mg/ (Dextrose) 60 mls @ 100 mls/hr IV DAILY [facility]; Protocol Stop: 11/11/21 16:29 Last Infusion: 11/07/21 09:07 Dose: Infused Documented by: Magnesium Sulfate/Dextrose (Magnesium Sulfate / D5w) 1 gm in 100 mls @ 50 mls/hr IV Q2H [facility] Stop: 11/08/21 11:43 Last Admin: 11/08/21 09:09 Dose: 50 mls/hr Documented by: Loperamide HCl (Loperamide Hcl 2 Mg Cap) 2 mg PO Q2HWA PRN PRN Reason: Diarrhea Stop: 12/06/21 16:00 Magnesium Chloride (Magnesium Chloride 64mg Delayed Rel Tab) 64 mg PO BID [facility] Stop: 12/06/21 20:59 Last Admin: 11/08/21 09:10 Dose: 64 mg Documented by: Metoprolol Tartrate (Metoprolol Tartrate 1 Mg/Ml Vial) 2.5 mg IV Q6 PRN; Protocol PRN Reason: Tachycardia Stop: 12/06/21 01:44 Nitroglycerin (Nitroglycerin Sl 0.4 Mg/Tab Tab) 0.4 mg SL UD PRN PRN Reason: Chest Pain Stop: 12/06/21 01:44 Ondansetron HCl (Ondansetron Inj 2 Mg/Ml 2 Ml Vial) 4 mg IV Q6H PRN PRN Reason: Nausea Stop: 12/06/21 01:44 Saccharomyces Boulardii (Saccharomyces Boulardii 250 Mg Cap) 250 mg PO DAILY [facility] Stop: 12/07/21 08:59 Last Admin: 11/08/21 09:11 Dose: 250 mg Documented by: Triamcinolone Acetonide (Triamcinolone Acet 0.1% Oint 15 Gm Tube) 1 appln TOP HS PRN PRN Reason: SKIN IRRITATION ON HANDS/ARMS Stop: 12/06/21 01:44 Vitamin D (Cholecalciferol 1,000 Units 25 Mcg Tab) 1,000 units PO Q2D [facility] Stop: 12/06/21 08:59 Last Admin: 11/08/21 09:10 Dose: 1,000 units Documented by: (1) Acute renal failure Acute renal failure type: unspecified Qualified Code(s): N17.9 - Acute kidney failure, unspecified
[2021-11-08] MEDS: cefTRIAXone SODIUM 1,000 MG in DEXTROSE 5% 50 ML IV SCH (10:31)
--- NOTE | 2021-11-08 11:50 | Discharge Summary ---
Date of Service November 08, 2021 Admission HPI Per Admitting Provider An 86-year-old male with past medical history significant for hypertension, hyperlipidemia, history of left carotid artery stenosis, cerebral AVM, chronic kidney disease stage III, BPH, Dupuytren contracture of both hands, peripheral polyneuropathy, history of hearing loss, who lives at home, presents with a fall, and found to have hypotension. The patient says last Thursday, he went to see his family doctor for regular checkup. At that time, he complained of some dizziness and a monitor was placed on him and also it was recommended for a shingles shot. After the shingles shot, he went home and he started feeling sick. He had a fever and body aches, flu-like symptoms and diarrhea, not feeling well, poor appetite, and the symptoms lasted about 3 days, but started getting better, but still has a lot of diarrhea. Still not eating much and today while he was walking, he felt dizzy and fell down and that is the reason he was brought in here and found to have hypotension and also found to be in rapid AFib and creatinine was 2.89, troponin 0.06, procalcitonin 5.06. Currently resting comfortably and hemodynamically stable. Somewhat hard of hearing. Denies any headache, no blurred visions, no earache, no runny nose. Has sore throat because of nausea. He had one episode of vomiting. Denies any chest pain, no shortness of breath, no abdominal pain, no blood in stools. Normal bladder movements. No swelling in the legs, no rash. Principal Diagnosis New onset Atrial Fibrillation with RVR Salmonella diarrhea Hypokalemia Hypomagnesemia Dehydration ASHELY Discharge Exam Appears well. Reports diarrhea has resolved. Last episode was yesterday morning Regular rate and rhythm. No murmurs/rubs/gallops Breathing comfortably on room air No leg swelling Discharge Data Allergies Allergy/AdvReac Type Severity Reaction Status Date / Time GAB Inhibitors AdvReac Intermediate Cough Verified 11/05/21 22:29 Consultations 11/05/21 22:21 ED Decision to Admit Stat 11/06/21 08:00 Consult Cardiology Routine 11/07/21 13:03 Consult Anesthesiology Routine Procedures Performed Operation Date: 11/08/21 07:15 <No data on this case meets the specified criteria> Ordered Studies 11/05/21 21:51 CT cervical spine wo con Urgent CT head/brain wo con Urgent 11/05/21 22:23 CT abd pelvis wo con Urgent Hospital Course 1. New onset A fib with RVR -was maintained on heparin drip while here. discharged on Eliquis 5mg BID -was loaded on amiodarone. discharged on amiodarone 200mg BID. Patient will follow up with Cardiology after discharge -He spontaneously converted to NSR 11/07/21 afternoon and remained in NSR at time of discharge 2. Hypokalemia -due to ongoing diarrhea -resolved with agressive repletion and resolution of diarrhea 3. Salmonella Diarrhea -stool cultures +salmonella -received 3 days of ceftriaxone while here -diarrhea resolved at time of discharge 4. Mildly elevated troponin -likely demand in setting of A fib RVR 5. ASHELY on CKD stage 3 -ASHELY in setting of GI losses -resolved with IVF and resolution of diarrhea -Losartan held while here 6. HTN -Holding losartan at time of discharge. Recommend patient follow up with his PCP within 1 week for blood pressure check and repeat BM to determine if losartan can be resumed. 7. Carotid artery disease -aspirin reduced to 81mg daily. continued on statin while here Total Time Total Time Spent Total Time Spent (In Minutes): 38 Discharge Plan Discharge Items Patient Disposition: Home - Self-Care Reason For Visit: HYPOTENSION, FALL Discharge Diagnosis: New onset Atrial Fibrillation Salmonella Diarrhea Hypokalemia Hypomagnesemia Condition on Discharge: Fair Activity: Resume your previous activity Bathing: No limitations Driving/Machine Use: No limitations Non-emergency contact: Primary Care Provider and Specialist Call non-emergency contact if: you have any medication questions and your symptoms worsen Follow-up/Referrals: Biju Carcamo [Physician Lead Software Tester] - (Date & Time 11/21/2021 11:30 AM Provider Biju Carcamo PA-C Department Cardiology, [facility] ) Sam Hsieh DO [Primary Care Provider] - (Date & Time 11/12/2021 3:00 PM Provider Sam Hsieh DO Department Family [address] ) Diet: Heart Healthy Add Attending Provider Instructions: You will be discharged on amiodarone 200mg twice a day AND Elquis 5mg twice a day for your Atrial fibrillation For your Salmonella diarrhea, you received antibiotics in the hospital and do not need further treatment. Please follow up with your primary care doctor. If your diarrhea comes back, you can take Imodium as needed and call your primary care doctor for further instructions Please follow up with Cardiology (heart doctor) Because of your diarrhea and dehydration, your blood pressure here was low. Your losartan was held at discharge. Please follow up with your primary care physician within 1 week to decide if this can be resumed Pending Studies at Discharge: No Stand-Alone Forms: My [facility], Smoking Cessation Medications and DC Order Prescriptions: New amiodarone 200 mg Tablet 200 mg PO BIDM 30 Days Qty: 60 RF: 1 aspirin 81 mg Tablet,Delayed Release (Dr/Ec) 81 mg PO DAILY 30 Days Qty: 30 RF: 0 Eliquis 5 mg Tablet 5 mg PO BID 30 Days Qty: 60 RF: 1 Continued cyanocobalamin (vitamin B-12) [Vitamin B-12] 1,000 mcg Tablet 1,000 mcg PO Q OTHER DAY RF: 0 simvastatin 40 mg tablet 40 mg PO HS RF: 0 garlic 500 mg Capsule 500 mg PO DAILY RF: 0 triamcinolone acetonide 0.1 % ointment 1 applic TOPICAL HS PRN (Reason: SKIN IRRITATION ON HANDS/ARMS) RF: 0 gabapentin 100 mg capsule 100 mg PO TID RF: 0 cholecalciferol (vitamin D3) [Vitamin D3] 25 mcg (1,000 unit) Capsule 25 mcg PO Q OTHER DAY RF: 0 Zinc (with A and C) Lozenges Lozenge 1 keisha PO DIRECTED PRN (Reason: NEEDED) RF: 0 Turmeric/Curcumin 500 mg PO DAILY RF: 0 Discontinued losartan 50 mg tablet 50 mg PO DAILY RF: 0 aspirin 325 mg Tablet 325 mg PO DAILY RF: 0 Discharge Orders: Discharge Order (Routine); Ordered 11/08/21 Ordered By: Zina Burton/Other Patient Handouts: Eliquis Oral Tablet 5 mg, AFib Dc Admission Data Admit Date/Time: 11/06/21 00:37 Attending Provider: Zina Dawson Admit Provider: Elliott Johnson Primary Care Provider: Sam Hsieh Other Providers: Elliott Johnson ; Carlos Lynn ; Jaqueline Delgado Other Interventions: Discharge Summary Assessment (RN) Last Done: 11/08/21 11:31
[2021-11-08] MEDS ORDERED: AMIODARONE 200 MG TAB PO SCH (17:00)
[2021-11-09] MEDS ORDERED: ASPIRIN 81 MG ECTAB PO SCH (09:00)
== END 2021-11-08 14:22 | disposition home or self-care (01) | DRG 309 ==
LOC: ED 20:35 → 2S 11-06 00:37